=== PATIENT | female | born 1950 | race African-American/Black ===

== ENCOUNTER 2024-11-06 14:12 | Outpatient (CLI) | payer BC, SELFPAY ==
[2024-11-06 15:07] LABS: Alanine Aminotransferase 21 U/L (6-35); Aspartate Amino Transferase 34 U/L (14-36)
== END 2024-11-06 14:13 | disposition home or self-care (01) ==
PROVIDERS: Visit Provider Podiatrist Foot & Ankle Surgery
DX: B35.1 Tinea unguium (principal)
CPT/HCPCS: 36415; 84450; 84460

== ENCOUNTER 2025-02-12 14:04 | Outpatient (CLI) | payer BC, SELFPAY ==
--- OUTSIDE RECORDS SUMMARY | 2025-02-12 14:22 | XMS_ITS | Encounter Summary ---
Author Organization [facility] Healthcare Address [address] [place] [id number] Care Team Providers Care Digital Traffic Coordinator Name Role Phone Miguel Singh MD Primary Care Provide r Teresa Solano OD Unavailable [phone] Janiya Arana MD Primary Care Provider [phone] Reason for Visit * Reason Onset Date Comments Referral Review/Colon 11/10/2021 Encounter Details Date Type Department Care Team (Late st Contact Info) Description 11/10/2021 Telephone [facility] Specialty Services [address] [place] [address] Miscellaneous, Not In File Referral Review/Colon Social History Tobacco Use Types Packs/Day Years Used Date Smoking Tobacco: Never Smokeless Tobacco: Never Alcohol Use Standard Drinks/Week Comments No 0 (1 standard drink = 0.6 oz pur e alcohol) AUDIT-C Answer Date Recorded Q1: How often do you have a drink containing alc ohol? Never 12/31/2020 Average Number of Drinks Not on file 021 Frequency of Binge Drinking Not on file 12/14 Hunger Vital Sign Answer Date Recorded Within the past 12 months, y ou worried that your food would run out before you got the money to buy more. Never true 01/01/20 21 Within the past 12 months, t he food you bought just didn't last and you didn't have money to get more. Never true 12/31/2020 Comments No Sex and Gender Information Value Date Recorded Sex Assigned at Not on file Legal Sex Female 12:20 AM SWIMMER Gender Identity Not on file Sexual Orientation Not on file documented as of this encounter Plan of Treatment Scheduled Procedures Name Priority Associated Diagnoses Date/Ti me COLONOSCOPY Open Access Screening for malignant neoplasm of colon COLONOSCOPY Open Access Colon cancer screening COLONOSCOPY Screening for colon cancer COLONOSCOPY Screening for colon cancer COLONOSCOPY Screening for colon cancer documented as of this encounter Goals Goal Patient Goal Type Associated Problems Recent Progress Patient-Stated? Author CCM Hypertension Care Plan Chronic Care Management Worsening( 9:21 AM CDT) Kasey Laughlin, RN Note: Problem: Hypertension Goals: 1. Meet age adjusted blood pressure goals 2. Prevention of complications including eyes, kidneys blood vessels 3. Avoid low blood pressure/passing out 4. Improve medicine access and compliance Strategies: - DASH Diet education - Periodic phone call screening for development of vision changes, pain/fatigue associated with walking, near falls - Periodic phone calls to request blood pressure readings, frequency of missed medication doses, any side affects - Encourage regular MD visits and remind patient of importance of keeping upcoming appointments - Recommend healthy lifestyle strategies and compensatory methods as needed documented as of this encounter Visit Diagnoses Not on filedocumented in this encounter Care Teams Digital Traffic Coordinator Relationship Specialty Start Date End Date Miguel Singh MD PCP - General Hematology 11/06/19 10/29/22 Janiya Arana MD [id number] [address] PCP - General 10/30/22 Teresa Solano OD Primary Eye Care Provider Optometry 08/18/20 documented as of this encounter
--- OUTSIDE RECORDS SUMMARY | 2025-02-12 14:22 | XMS_ITS | Clinical Summary ---
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 Name Role Phone Teresa Solano OD Unavailable [phone] Janiya Arana MD Primary Care Provider [phone] Allergies Active Allergy Reactions Criticality Noted Date Comments Grass Pollen Headache Low 12/31/2020 Onion Other (See comments) Low 03/20/2019 Throat irritation Medications aspirin 81 mg tablet Take 1 tablet (81 mg total) by mouth daily 10/07/19 16 Active blood glucose diagnostic strip 1 each by in vitro route 3 (three) times a day 09/13/19 15 Active fluconazole (DIFLUCAN) 150 mg tablet 03/26/20 24 Active calcium citrate-vitamin D2 250 mg-2.5 mcg (100 unit) per tablet Take 1 tablet by mouth daily Active biotin 1 mg capsule Take by mouth Active empagliflozin (JARDIANCE) 10 mg tabletIndication s:type 2 diabetes mellitus Take 1 tablet (10 mg total) by mouth daily 360 tablet 04/10/20 24 025 Active lisinopriL (PRINIVIL,ZESTRI L) 40 mg tabletIndication s:Primary hypertension Take 1 tablet (40 mg total) by mouth daily 90 tablet 3 04/10/20 24 025 Active metFORMIN XR (GLUCOPHAGE XR) 500 mg 24 hr tablet Take 2 tablets (1,000 mg total) by mouth 2 (two) times a day with meals 360 tablet 3 06/06/19 25 026 Active atorvastatin (LIPITOR) 40 mg tablet Take 1 tablet (40 mg total) by mouth daily 90 tablet 4 08/01/19 25 026 Active estrogens, conjugated, (PREMARIN) vaginal cream Apply 0.5 gram to vagina at night twice per week 42.5 g 6 08/18/19 25 025 Active hydrOXYzine (ATARAX) 25 mg tabletIndication s:Allergic rhinitis, unspecified seasonality, unspecified trigger Take 1 tablet (25 mg total) by mouth 2 (two) times a day as needed for itching 90 tablet 4 08/29/19 25 Active solifenacin (VESIcare) 5 mg tabletIndication s:History of urinary urgency Take 2 tablets (10 mg total) by mouth daily 180 tablet 3 08/29/19 25 026 Active amLODIPine (NORVASC) 10 mg tabletIndication s:Primary hypertension Take 1 tablet (10 mg total) by mouth daily 90 tablet 3 08/29/19 25 Active latanoprost (XALATAN) 0.005 % ophthalmic solution Administer 1 drop into both eyes nightly 7.5 mL 1 09/28/19 25 Active fluticasone propionate (FLONASE) 50 mcg/actuation nasal spray Administer 2 sprays into each nostril daily 3 each 10/10/19 25 026 Active ibuprofen (ADVIL,MOTRIN) 800 mg tabletIndication s:Chronic left shoulder pain Take 1 tablet (800 mg total) by mouth every 6 (six) hours as needed for pain 90 tablet 01/16/20 25 Active estradioL (VAGIFEM) 10 mcg tabletIndication s:Atrophic Vaginitis associated with Menopause Insert 1 tablet (10 mcg total) into the vagina 2 (two) times a week 1 PV qhsfor 14 nights to initiate the txmnt then 2 nights per wk after that 24 tablet 2 01/18/20 25 026 Active levocetirizine (XYZAL) 5 mg tabletIndication s:Allergic rhinitis, unspecified seasonality, unspecified trigger Take 1 tablet (5 mg total) by mouth daily 30 tablet 11 01/25/20 25 026 Active hyoscyamine (LEVSIN) 0.125 mg tablet TAKE 1 TABLET BY MOUTH EVERY 4 HOURS NEEDED FOR CRAMPS 360 tablet 02/09/20 25 Active ibuprofen (ADVIL,MOTRIN) 800 mg tablet Take 1 tablet (800 mg total) by mouth every 6 (six) hours as needed for pain 90 tablet 07/07/19 23 025 Discontinu ed(Reorder ) hyoscyamine (LEVSIN) 0.125 mg tabletIndication s:Urinary Incontinence Take 1 tablet (0.125 mg total) by mouth every 4 (four) hours as needed for cramping 90 tablet 11 08/01/19 25 025 Discontinu ed(Reorder ) levocetirizine (XYZAL) 5 mg tabletIndication s:Allergic rhinitis, unspecified seasonality, unspecified trigger Take 1 tablet (5 mg total) by mouth daily 30 tablet 11 01/16/20 25 025 Discontinu ed(Reorder ) sulfamethoxazole -trimethoprim (BACTRIM DS) 800-160 mg per tabletIndication s:Acute cystitis without hematuria Take 1 tablet by mouth 2 (two) times a day for 3 days 6 tablet 01/18/20 25 025 cephalexin (KEFLEX) 500 mg capsuleIndicatio ns:Acute cystitis without hematuria Take 1 capsule (500 mg total) by mouth 2 (two) times a day for 7 days 14 capsule 01/23/20 25 025 Active Problems Problem Noted Date Diagnosed Date Screening for malignant neoplasm of colon 2024 Assessment & Plan (01/15/2025 9:46 PM CDT): Order placed in 07/2024 visit. Provided number today for colonoscopy appointment scheduling. Other female genital prolapse 10/26/2023 Assessment & Plan (10/26/2023 1:51 PM CDT): Patient with clinically evident pelvic organ prolapse, presenting with symptoms of urinary frequency and dysuria, as well as vaginal itching. Exam shows pink bulge at the introitus that extends further with Valsalva. Speculum exam deferred, but appears to be anterior. Patient has a hysterectomy, strong suspicion that this is a cystocele. --Referred to urogynecology --Will also order UA with reflex to culture to ensure no concurrent UTI Colon cancer screening 07/25/2023 Other hemorrhoids 04/15/2023 Overview (04/15/2023): Recently had a painful, itchy hemorrhoid that resolved with hemhorroidal treatments including Tucks witchhazel and preparation H. No symptoms today. Occasionally has loose stool but denies straining, constipation, or bloody stool. - symptomatic treatment for hemhorroids PRN - recommended miralax OTC PRN - recommended colonoscopy - pt deferred History of urinary urgency 01/05/2023 Overview (01/19/2024): Overall stable symptoms with sensation of urge to manzano to bathroom to urinate. Had seen Urology back in [id number]. Denies dysuria, hematuria, pelvic pain or lesions. - continue vesicare 5 mg BID - Continue pelvic floor exercises - Continue urinary lifestyle modifications. - Consider referral to Urogyn if no improvement. Assessment & Plan (07/25/2023 5:35 PM CDT): History of urinary urgency and urgency incontinence. Well-controlled on vesicare. - continue vesicare 10mg daily - continue pelvic floor exercises, urinary lifestyle modifications. - referral to urogyn if with worsening symptoms Assessment & Plan (01/05/2023 10:15 AM CDT): History of urinary urgency and urgency incontinence. Well-controlled and asymptomatic on vesicare. Patient follows with urology. - continue vesicare - continue pelvic floor exercises - follow up with urology as scheduled. Allergic rhinitis 07/07/2022 Overview (01/19/2024): She has post nasal drip that is present all the time, but seems to be present more often than it used to and some days it is worse than others. She also gets sinus headaches for which she takes ibuprophen. She states the post nasal drip is so bothersome and uncomfortable to her that it prevents her from eating. She takes flonase and an over the counter sinus pill from the [employer] store that she does not know the name of. She has tried zyrtec and claritin in the past but they did not provide much relief. Others. She states she has visited ENT but they did not have any suggestions for her. - continue flonase - refer to allergy Assessment & Plan (01/15/2025 9:46 PM CDT): Reports sinus pressure with associated ear fullness, headaches (forehead) and significant post-nasal drip that upsets her stomach and makes her lose appetite. Triggered by allergens (grass). 2-3x/week. Sx relief with tylenol and flonase. Has tried Zyrtec, Love, and Claritin in the past with minimal relief. Saw allergy&immunology in 03/2024 where skin testing showed mild sensitization to tree, oak, cockroach, and mites. Discussed with her that we could start her on another antihistamine called Xyzal to see if there is any improvement in her sx. During seasons such as summer where grass is unavoidable, recommended taking Xyzal daily. Pt was amenable to trialing this. Recommended continuation of sx relief with flonase as needed. - Start Xyzal 5mg daily Neuropathy 02/03/2022 Chronic left shoulder pain 02/03/2022 Assessment & Plan (01/15/2025 9:46 PM CDT): Refilled Ibuprofen. Counseled pt on recommended daily dose and to avoid exceeding this. Pt reports she only use this on occasion when her shoulder pain comes on, which is not daily. Thyroid nodule 06/09/2021 Overview (06/09/2021): Enlarged thyroid with dominant 3.5 cm left thyroid nodule found incidentally on CT CAP. Patient has history of tachycardia but has normal rate today and is asymptomatic. Nodule benign on FNA Mar 2020. Weight loss 12/31/2020 Overview (12/31/2020): Decreased appetite with some weight loss. Avoids foods that she does not enjoy. Lost ~10 pounds in past few months. Has previously had weight loss with neg work up including CT Abd in 2019. -RD consult -Appropriate cancer screening -Discontinuing citalopram 20 mg, replacing with mirtazapine -BMP -TSH -basic tumor markers - , CA19-9, AFP Assessment & Plan (01/05/2023 10:05 AM CDT): With history of decreased appetite and weight loss. Neg workup with CTAP, tumor markers, BMP, TSH. Appetite and intake is improved with Mirtazipine and she is has seen RD. - Continue Mirtazipine - Continue to ensure adequate intake for 2-3 meals a day with assistance from yard worker. Depressed mood 12/31/2020 Overview (12/31/2020): -Discontinuing citalopram for mirtazapine 7.5mg nightly in setting of controlled mood and decreased appetite Assessment & Plan (01/05/2023 10:15 AM CDT): Well-controlled, chronic issue managed with Mirtazipine 7.5mg nightly in the setting of history of depressed mood and decreased appetite. Low-tension glaucoma of both eyes, mild stage Overview (07/02/2021): Thinner CCTs Assessment & Plan (01/03/2025 2:34 PM CDT): Here for follow up with HVF 10-2 VA stable IOP at goal on latan QHS HVF 10-2 stable superior arcuates CPM RTC 6 months with OCT RNFL OU Plan to alternate 10-2 and 24-2 annually Assessment & Plan (07/05/2024 1:30 PM HAND SLITTER): OCT RNFL today with stable inferior thinning OU 11 both eyes (OU) on latan. Easier to remember to take in AM. At goal CPM Alternate 10-2 and 24-2 annually RTC 6 months for 1 year HVF10-2 OU and DFEx OU Assessment & Plan (12/29/2023 1:42 PM CDT): Here for intraocular pressure (IOP) check 11 both eyes (OU) on latan At goal CPM Alternate 10-2 and 24-2 annually RTC 6 months RNFL OU, 1 year HVF10-2 OU Assessment & Plan (06/30/2023 2:07 PM HAND SLITTER): Here for intraocular pressure (IOP) check 11 both eyes (OU) on latan At goal CPM Alternate 10-2 and 24-2 q6m RTC 6 months [place] visual field (HVF) 24-2 and RNFL OU Assessment & Plan (02/03/2023 12:04 PM CDT): LTG OU Here for 10-2: baseline right eye (OD) ST defect; left eye (OS) superior arcuate correlating with RNFL and 24-2 OCT Nerve is stable over two years today Plan to continue latan Return 4 mos for IOP check. If stable can consider extending Assessment & Plan (10/01/2022 2:52 PM CDT): LTG OU Here for 24-2: stable relative to 12/2021 since resuming latan OCT Nerve is stable over two years today Plan to continue latan Return 4 mos for IOP check and baseline 10-2 OU Assessment & Plan (07/08/2022 4:04 PM HAND SLITTER): LTG OU Last HVF 12/2021 Last OCT nerve 06/2021 Last visit added back latanoprost qhs OS for evidence of progression on HVF OS, had previously had some fluctuations in IOP TODAY: -IOP stable 11 OU Likely at goal today if consistent low teens Plan: - Continue latanoprost qHS OU - follow 2-3 months for IOP check, HVF 24-2 OU and DFEx/OCT nerve OU, sooner for concerns - Will need baseline HVF 10-2 in future, can alternate with 24-2 Assessment & Plan (12/31/2021 2:26 PM CDT): LTG OU - IOP today 11 OU s/p SLT - IOP at goal but HVF with progression OS - OD fluctuating from 2020, but OS with clear progression - add back latanoprost qHS OU - follow 2-3 months for IOP check, sooner for concerns Assessment & Plan (07/02/2021 1:16 PM HAND SLITTER): LTG both eyes s/p SLT OU Off all drops and IOP remains low teens RNFL stable today At this time with current IOP at testing, at goal Needs close monitoring giving proximity to fixation Follow 4-6 months with HVF 24-2C (do the C protocol) w/GPA Assessment & Plan (02/24/2021 3:54 PM CDT): LTG both eyes s/p SLT OU Off all drops and IOP remains low teens HVF today with stable SAS OD, paracentral defects OS OCT with inferior thinning OU At this time with current IOP at testing, at goal Needs close monitoring giving proximity to fixation Follow 6 months with DFE/OCT RNFL Assessment & Plan (01/16/2021 2:53 PM CDT): Here for SLT OU Discussed R/B/A Consent obtained, to be scanned in See procedure notes under Ophth tab Continue latanoprost qhs OU Start PF QID OU for 5 days then stop (provided). Discussed return precautions. [facility] 5-6 weeks for IOP check and HVF 24-2 OU Assessment & Plan (01/01/2021 1:18 PM CDT): Here for LTG eval. Previously seen by optom and neuro-ophth for eval of optic neuropathy without other determined etiology Normal labs: B12, B1, RPR, folate, MMA, copper MRI brain ruled out a compressive lesion, no findings concerning for demyelinating disorder TMax per our records: No hx trauma FHx: no known Gonio Gr IV, 1+ pigment, iris processes OU CCT slightly thin OU (520s OU) Current gtt: latanoprost qhs OU- frequently misses Intolerances: Simbrinza- blurriness and difficulty with TID dosing Other Hx: No hx Migraines, does have HTN- takes meds in AM HVF 24-2: OD: dense central defect (-31 db), superior bjerrum scotoma/SA, OS: ceco central defect, superior nasal step OCT RNFL 84 microns OU with inferior thinning OU Goal ~low-teens Plan: Continue latanoprost qhs OU RTC next available Lyerla SATHYA for SLT OU RTC 6 weeks post SLT Glaucoma clinic for HVF 24-2 Assessment & Plan (11/04/2020 11:07 AM CDT): Recommend switching to latanoprost nightly OU. Okay to stop Simbrinza, patient has difficulty with t.i.d. dosing. Recent evaluation in Neuro-Ophthalmology revealed no neurologic causes of vision loss including nutritional optic neuropathy or brain lesion. Referred to glaucoma clinic for evaluation for normal tension glaucoma. Assessment & Plan (06/17/2020 2:58 PM HAND SLITTER): Vs NTG right eye (OD). Sectorial pallor left eye (OS) more suggestive for non glaucomatous etiology. No FHx. Start hypotensive drop to increase optic nerve (ON) perfusion. Refer to Neuro-Op for eval for optic neuropathy (toxic/metabolic). BP Readings from Last 5 Encounters: 04/27/20 113/60 02/27/20 121/72 01/01/20 125/67 03/20/19 133/75 10/02/18 134/65 RTC for gonio/pach Russ after Neuro eval Age-related cataract of both eyes 06/27/2019 Assessment & Plan (07/05/2024 1:26 PM HAND SLITTER): NVS, monitor, migs candidate Assessment & Plan (12/29/2023 1:33 PM CDT): NVS, monitor, migs candidate Assessment & Plan (06/30/2023 2:07 PM HAND SLITTER): NVS, monitor, migs candidate Assessment & Plan (01/01/2021 1:21 PM CDT): Not yet VS. Could consider phaco/migs in future Assessment & Plan (06/17/2020 2:55 PM HAND SLITTER): Defer cataract surgery until signs and symptoms indicate. Pt was educated on the diagnosis. Recommend daily UV protection. Assessment & Plan (06/27/2019 9:42 AM HAND SLITTER): Defer cataract surgery until signs and symptoms indicate. Pt was educated on the diagnosis. Recommend daily UV protection. Bilateral retinal lattice degeneration 0 Assessment & Plan (06/17/2020 2:55 PM HAND SLITTER): Patient was educated on the signs/sx retinal detachment, including flashes, floaters, and/or curtain over the vision. Recommend patient RTC immediately with the onset of any of these symptoms. Assessment & Plan (06/27/2019 9:43 AM HAND SLITTER): Pt ed. Signs/sx retinal detachment (RD) reviewed. Optic nerve cupping of both eyes 06/27/2019 Assessment & Plan (06/27/2019 9:43 AM HAND SLITTER): RTC for Glaucoma work-up: [place] visual field (HVF), OCT, pach, gonio. No FHx Glaucoma. Health NRR both eyes (OU). Normal IOPs. Hypertensive retinopathy of both eyes, grade 1 0 06/27/2019 Assessment & Plan (06/27/2019 9:44 AM HAND SLITTER): Pt ed. Stressed strict BP control/med compliance. Healthcare maintenance 11/15/2017 Overview (01/19/2024): - A1c (for pts with BP >135/80): 7.2 12/2023 - Lipids (women >45 or high risk): repeat today - DEXA (women >65 or high risk): WNL 2020 - Vit D: Jun Cancer - Colonoscopy (age 45-75): 03/2022 - repeat in 6-12 months due to poor bowel prep (patient would like to differ till May 2024) - Mammogram (women age 50-74): birads 16 May 2020; scheduled for tomorrow - Pap (women 21-65): NA - Lung (50-80 with >20 pk-yr hx, and smoking in past 15yrs): NA Infectious Disease - HIV (age 15-65): neg in 2020 - HBV (if at high risk): NA - HCV (18+ yo): neg in 2018 - Gonorrhea/Chlamydia (women <24 or increased risk): NA - Syphilis (if increased risk): NA Immunizations - COVID-19: J&J, Pfizer, Pfizer bivalent - Influenza (annually): 3578-3065 - Td/Tdap (q10 years): 2020 - PPSV23 (age >65, immunocomp, DM, CKD, heart dz, lung dz, liver dz, EtOH, asplenia): 2018 - PCV13 (age >65, immunocomp, CKD, asplenia): 2017 - Shingles RZV (age >60): encouraged - HPV (women <26):NA - HAV (MSM or chronic liver disease): NA - HBV (DM, HIV, MSM, liver dz, CKD, healthcare workers): NA - Meningococcus (asplenia, college students): NA - HiB (asplenia, HSCT): NA Assessment & Plan (07/25/2023 5:28 PM CDT): - A1c (for pts with BP >135/80): 8.1% (01/05/23) > 7.3% 03/2023 - Lipids (women >45 or high risk): on atorvastatin 40mg QPM - DEXA (women >65 or high risk): WNL 2020 Cancer - Colonoscopy (age 45-75): 03/2022 - repeat in 6-12 months due to poor bowel prep Re-ordered today after patient discussion - Mammogram (women age 50-74): birads 2 on 09/2022 - Pap (women 21-65): NA - Lung (50-80 with >20 pk-yr hx, and smoking in past 15yrs): NA Infectious Disease - HIV (age 15-65): neg in 2020 - HBV (if at high risk): NA - HCV (18+ yo): neg in 2018 - Gonorrhea/Chlamydia (women <24 or increased risk): NA - Syphilis (if increased risk): NA Immunizations - COVID-19: J&J, Pfizer, Pfizer bivalent - Influenza (annually): 2960-9589 - Td/Tdap (q10 years): 2023 - PPSV23 (age >65, immunocomp, DM, CKD, heart dz, lung dz, liver dz, EtOH, asplenia): 2018 - PCV13 (age >65, immunocomp, CKD, asplenia): 2017 - Shingles RZV (age >60): encouraged - HPV (women <26):NA - HAV (MSM or chronic liver disease): NA - HBV (DM, HIV, MSM, liver dz, CKD, healthcare workers): NA - Meningococcus (asplenia, college students): NA - HiB (asplenia, HSCT): NA Assessment & Plan (01/05/2023 10:12 AM CDT): - A1c (for pts with BP >135/80): 8.1% (01/05/23) - Lipids (women >45 or high risk): reordered today on atorvastatin 40mg QPM - DEXA (women >65 or high risk): WNL 2020 Cancer - Colonoscopy (age 45-75): 03/2022 - repeat in 6-12 months due to poor bowel prep (deferred, reorder on RTC in 02/2023) - Mammogram (women age 50-74): birads 2 on 09/2022 - Pap (women 21-65): NA - Lung (50-80 with >20 pk-yr hx, and smoking in past 15yrs): NA Infectious Disease - HIV (age 15-65): neg in 2019 - HBV (if at high risk): NA - HCV (18+ yo): neg in 2018 - Gonorrhea/Chlamydia (women <24 or increased risk): NA - Syphilis (if increased risk): NA Immunizations - COVID-19: J&J, Pfizer, Pfizer bivalent - Influenza (annually): 9887-6568 - Td/Tdap (q10 years): 2020 - PPSV23 (age >65, immunocomp, DM, CKD, heart dz, lung dz, liver dz, EtOH, asplenia): 2018 - PCV13 (age >65, immunocomp, CKD, asplenia): 2017 - Shingles RZV (age >60): encouraged - HPV (women <26):NA - HAV (MSM or chronic liver disease): NA - HBV (DM, HIV, MSM, liver dz, CKD, healthcare workers): NA - Meningococcus (asplenia, college students): NA - HiB (asplenia, HSCT): NA Hyperlipidemia 07/13/2016 Overview (11/15/2017): On atorva 40 mg qd. ASCVD 7.5%. Assessment & Plan (07/31/2024 11:52 AM CDT): ASCVD risk is 24.8% with RF (HTN, DM). - continute lipitor 40mg, lipid panel UTD - continute lifestyle modifications involving diet and activity Assessment & Plan (07/25/2023 5:24 PM CDT): ASCVD risk is 24.8% with RF (HTN, DM). - continute lipitor 40mg, lipid panel UTD - continute lifestyle modifications involving diet and activity Assessment & Plan (01/05/2023 10:21 AM CDT): ASCVD risk is 8.1% with RF (HTN, DM). - continute lipitor 40mg - repeat lipid panel today - continute lifestyle modifications involving diet and activity Osteopenia 01/22/2015 Overview (11/15/2017): Dexa in 2008. Last vitamin D level 40 in 2015, currently on OTC supplementation. Complete tear of rotator cuff 02/11/2014 Overview (11/15/2017): Followed by ortho, managed with stretching exercises, prn ibuporfen. Diabetes mellitus 03/31/2011 Assessment & Plan (01/15/2025 9:46 PM CDT): Today's A1c is which is 6.6% from prior 6.5% (07/2024) . Current regimen: Metformin 1000mg bid, Jardiance 10mg daily. She reports taking BGs in evening (weekends will be AM and PM) and reports average fasting glucose of 120s, higher in the past few weeks. Reports 1-2 episodes of hypoglycemia (60s) with associated lightheadedness, resolved with drinking soda. Diabetic Maintenance: - Last eye exam: 01/03/2025 normal - Last foot exam: 10/2024 was normal, scheduled for 02/12/2025 - Last urine Alb/Cr ratio: ordered today - Goal BP <130/80: at goal - Goal A1c < 7%: at goal - Statin: Atorva 40 - LDL <70: 100 in 07/2024 Plan: - Continue current regimen - F/u urine Alb/cr Assessment & Plan (07/31/2024 11:52 AM CDT): - Current Regimen: Metformin 2g daily Jardiance 10mg daily - HbA1c: 7.1% on 07/2023 > 7.2% 01/2024 - BP: well-controlled - Microalbumin/Creatinine: UTD - ACEi/ARB: yes - ASCVD risk score: The 10-year ASCVD risk score (Charmaine RIGGINS, et al., 2019) is: 25.2% Values used to calculate the score: Age: 74 years Sex: Female Is Non- : Yes Diabetic: Yes Tobacco smoker: No Systolic Blood Pressure: 134 mmHg Is BP treated: Yes HDL Cholesterol: 39 mg/dL Total Cholesterol: 163 mg/dL - Statin: On Atorva 40mg daily - Foot/extremity exam (06/2023) - Retinopathy exam (06/2023) Brief plan: - continue dietary and activity modifications, doing well, follow up in 6 months for repeat A1c Assessment & Plan (07/05/2024 1:30 PM HAND SLITTER): Recommend DFEx at next visit Assessment & Plan (07/25/2023 5:31 PM CDT): - Current Regimen: Metformin 2g daily Jardiance 10mg daily - HbA1c: 7.1% on 07/2023 - BP: well-controlled - Microalbumin/Creatinine: UTD - ACEi/ARB: yes - ASCVD risk score: The 10-year ASCVD risk score (Charmaine RIGGINS, et al., 2019) is: 24.8% Values used to calculate the score: Age: 73 years Sex: Female Is Non- : Yes Diabetic: Yes Tobacco smoker: No Systolic Blood Pressure: 133 mmHg Is BP treated: Yes HDL Cholesterol: 39 mg/dL Total Cholesterol: 167 mg/dL - Foot/extremity exam (06/2023) - Retinopathy exam (06/2023) Brief plan: - continue dietary and activity modifications Assessment & Plan (01/05/2023 10:25 AM CDT): - Current Regimen: Metformin 2g daily + Jardiance 10mg daily started 01/05/23 - HbA1c: 8.1% (01/05/23) - BP: well-controlled - Microalbumin/Creatinine: ordered today - ACEi/ARB: yes - ASCVD risk score: The ASCVD Risk score (Charmaine RIGGINS, et al., 2019) failed to calculate for the following reasons: Cannot find a previous HDL lab Cannot find a previous total cholesterol lab - Foot/extremity exam (06/2022) - Retinopathy exam (09/2022) Brief plan: - Started Jardiance today, continue to monitor BG at home - continue to ensure adequate intake during the day, avoid skipping meals - hypoglycemia precautions advised - continue dietary and activity modifications Rotator cuff disorder 03/15/2011 Overview (04/15/2023): R shoulder pain s/p rotator cuff repair. Also has some L rotator cuff pain. Able to perform ADL and IADLs. Mild. - Continue OTC ibuprofen and OTC lidocaine patches - Follow up with PM&R who offered nerve block/RFA as needed if symptoms worsen Assessment & Plan (07/25/2023 5:26 PM CDT): Mild bilateral rotator cuff pain s/p repair managed well with OTC ibuprofen and lidocaine patches. Continues to perform ADLs and IADLs without issues. Established with PM&R who offered nerve block/RFA, but at this time patients symptoms are adequately managed with medication and she would like to continue to avoid interventions. - continue OTC ibuprofen and tylenol - return precautions to PM&R advised including worsening pain not managed adequately with OTC ibuprofen and tylenol and inability to complete IADLs and ADLs Assessment & Plan (01/05/2023 10:08 AM CDT): Mild bilateral rotator cuff pain managed well with OTC ibuprofen and lidocaine patches. Continues to perform ADLs and IADLs without issues. Established with PM&R who offered nerve block/RFA, but at this time patients symptoms are adequately managed with medication and she would like to avoid interventions. - continue OTC ibuprofen and tylenol - return precautions to PM&R advised including worsening pain not managed adequately with OTC ibuprofen and tylenol and inability to complete IADLs and ADLs Hypertension 10/29/2005 Overview (01/19/2024): BP today 129/72. On Lisinopril 40mg daily, Amlodipine 10mg daily - cont current regimen Assessment & Plan (07/31/2024 11:52 AM CDT): Current regimen: Lisinopril 40mg daily and Amlodipine 10mg daily . Well controlled in clinic and at home - cont current regimen - continue low sodium diet, exercise Assessment & Plan (07/25/2023 5:23 PM CDT): Current regimen: Lisinopril 40mg daily and Amlodipine 10mg daily . Taking Medications regularly. The home BP readings have been in the 130-140's. BP in clinic today was 133/60. Denies dizziness, headaches, visual changes, chest pain, SOB. She noted feeling off balance with standing up very quickly, at last visit advised to be cautious with positional changes. She notes improvements to symptoms since she was last seen - cont current regimen - continue to take time with positional changes - continue low sodium diet, exercise Assessment & Plan (01/05/2023 10:00 AM CDT): Chronic, well-controlled on Norvasc 10 and lisinopril 40. Continue current management - lisinopril 40 - amlodipine 10 mg daily - continue DASH diet, checking BP at home IBS (irritable bowel syndrome) 10/29/2005 Overview (01/19/2024): Controlled with hyoscyamine - reordered hyoscyamine Resolved Problems Problem Noted Date Diagnosed Date Resolved Date Severe malnutrition (CMS/HCC) 04/26/2020 06/09/2021 Fatigue 04/25/2020 06/09/2021 Assessment & Plan (04/27/2020 1:17 PM HAND SLITTER): Much improved. -Unclear etiology. She has had worsening generalized weakness since 04/20. It seemed severe on admission (04/24 HS), but was improved by 04/25 AM. TSH, ACS w/u, lactate, VBG (for hypercarbia), UDS, basic labs, infectious (besides covid) w/u unrevealing. She is not hypotensive. -Working diagnosis is 2/2 covid +/- atypical PNA +/- dehydration/poor PO intake. -Infectious w/u: (known covid +), UA, CXR, BCx -Azithromycin for possible atypical PNA on CXR -Holding off HCT as neuro exam is normal Sepsis 04/25/2020 06/09/2021 Assessment & Plan (04/25/2020 10:43 AM HAND SLITTER): Based on fever x1 (39.5), tachycardia (102), and borderline WBC (10-11). -BCx, UA, CXR -Azithromycin. Low threshold for broad spectrum ABx. Decreased appetite 04/25/2020 2 Assessment & Plan (04/25/2020 10:45 AM HAND SLITTER): Likely 2/2 generalized malaise. According to son, has barely eaten/drank over the past few days. Creatinine wnl Hypertension associated with diabetes 04/25/2020 04/15/2023 Assessment & Plan (04/25/2020 10:47 AM HAND SLITTER): -Observe off meds (has been normotensive) Depression 04/25/2020 06/09/2021 Assessment & Plan (04/25/2020 10:47 AM HAND SLITTER): Restart home citalopram COVID-19 virus infection 04/24/2020 Assessment & Plan (04/27/2020 1:17 PM HAND SLITTER): Tested covid + 04/24/20. She has no dyspnea, no cough. Her main symptoms is lethargy/generalized fatigue/weakness. -Observe; O2 if needed; telemetry -She also has a mild transaminitis which could be from covid -> observe -She also has a mild coagulopathy, which could be from covid vs poor nutrition - > vit K PO, observe -Diarrhea -> C diff is negative Herpes zoster 01/13/2017 06/09/2021 Major depression 11/28/2015 06/09/2021 Overview (11/15/2017): Controlled on citalopram 20 qd. Increased frequency of urination 12/18/2012 06/09/2021 Eczema 08/28/2012 06/09/2021 Nocturia 05/06/2009 11/15/2017 Arthralgia of ankle 10/29/2005 06/09/19 Encounters Date Type Department Care Team Description 01/31/2025 Telephone [facility] [address] [place] [address] 3rd Floor [address] [place] [address] Allie Arriola RN 01/23/2025 Telephone [facility] Primary Care Medicine Clinic [address] [place] [address] Health [address] [place] [phone] Marilin Carmona MD 01/23/2025 Documentation [facility] [address] [place] [address] Health [address] [place] [id number] Marilin Carmona MD 01/22/[address] [phone] Bria Rodriguez MD 01/21/2025 [facility] Primary Care Medicine Clinic [address] [place] [address] Health [address] [place] [address] Janiya Arana MD Follow-up 01/21/2025 Telephone [facility] Clinic [address] [place] [address] 3rd [address] [place] [address] Darron Robertson 01/17/[address] [phone] Bria Rodriguez MD 01/15/2025 2:30 PM CDT Office Visit [facility]etrics [facility] Gyne[facility] Clinic [address] [facility] 3rd [address] [place] [phone] Bria Rodriguez MD Increased urinary frequency (Primary Dx); Vaginal atrophy 01/15/2025 1:00 PM CDT Office Visit [facility] Medicine [facility] [address] [facility] [address] [place] [address] Marilin Carmona MD Type 2 diabetes mellitus without complication, without long-term current use of insulin (HCC) (Primary Dx); Allergic rhinitis, unspecified seasonality, unspecified trigger; Chronic left shoulder pain; Screening for malignant neoplasm of colon 01/03/2025 2:00 PM CDT Office Visit [facility] Medicine Ophthalmology [address] [place] [address] 1st [place] [address] Low-tension glaucoma of both eyes, mild stage (Primary Dx) from Last 3 Months Immunizations Immunization Administration Dates Next Due COVID-19 mRNA ([facility]) 0.3 m L (30 mcg) vaccine (12 years and up) 04/12/2023 Influenza, Quadrivalent, Hig h Dose, Preservative Free, Intrr 04/12/2023 Influenza, Trivalent, Preser vative Free, Intramuscular 03/16/2011,04/11/2007,03/08/2006 Influenza, Unspecified 02/27/2020 Lance (J&J) SARS-CoV-2 Vaccination 07/24/2020 Pneumococcal Conjugate PCV 13 11/04/2016 Pneumococcal Polysaccharide PPV23 03/07/2018 TD Preservative Free 02/10/2010 Td, adsorbed 01/01/2020 Tdap 07/25/2023 Surgical History Surgery Date Site/Laterality Comments [place] COLONOSCOPY FLX DX W/SEBASTIAN J SPEC WHEN PFRMD Complete Colonoscopy - (Added by TW Conv) [place] TOTAL ABDOMINAL HYSTERECT W/WO RMVL TUBE OVARY Hysterectomy - (Added by TW Conv) ROTATOR CUFF REPAIR Rotator Cuff Repair - (Added by TW Conv) Medical History Medical History Date Comments Pain in ankle Ankle joint pain - (Added by TW Conv) Encounter for screening mamm ogram for malignant neoplasm of breast Visit for screening mammo gram - (Added by TW Conv) Personal history of other di seases of the musculoskeletal system and connective tissue History of osteopenia - (Add ed by TW Conv) Personal history of other me ntal and behavioral disorders History of depression - (Add ed by TW Conv) Personal history of diseases of skin or subcutaneous tissue History of eczema - (Added b y TW Conv) Urge incontinence Urge incontine nce of urine - (Added by TW Conv) Irritable bowel syndrome wit hout diarrhea Irritable bowel syndrome - ( Added by TW Conv) Essential (primary) hypertension Hypertension - (Added by TW Conv) Murmur, cardiac Seasonal allergies Diabetes HTN (hypertension) Recurrent sinus infections Chronic allergic conjunctivitis 07/21/2010 Family History Medical History Relation Name Comments Glaucoma Neg Hx Macular degeneration Neg Hx Social History Tobacco Use Types Packs/Day Years Used Date Smoking Tobacco: Never Smokeless Tobacco: Never Alcohol Use Standard Drinks/Week Comments No 0 (1 standard drink = 0.6 oz pur e alcohol) AUDIT-C Answer Date Recorded Q1: How often do you have a drink containing alcohol? Never 07/25/2023 Q2: How many drinks containi ng alcohol do you have on a typical day when you are drinking? Patient does not drink Q3: How often do you have si x or more drinks on one occasion? Never 07/25/2023 PHQ-2 Answer Date Recorded PHQ-2 Total Score (If total score is 3 or more points, staff should administer the PHQ-9) 0 07/31/2024 Hunger Vital Sign Answer Date Recorded Within the past 12 months, y ou worried that your food would run out before you got the money to buy more. Never true 01/16/20 25 Within the past 12 months, t he food you bought just didn't last and you didn't have money to get more. Never true 01/15/2025 Comments No Sex and Gender Information Value Date Recorded Sex Assigned at Not on file Legal Sex Female 12:20 AM HAND SLITTER Gender Identity Not on file Sexual Orientation Not on file Obstetrics History Last Filed Vital Signs Vital Sign Reading Time Taken Comments Blood Pressure 136/68 01/15/2025 2:40 PM CDT Pulse 81 01/15/2025 2:40 PM CDT Temperature 36.7 C (98.1 F) 01/15/2025 1:24 PM CDT Respiratory Rate 18 01/15/2025 1:24 PM CDT Oxygen Saturation 97% 01/15/2025 2:40 PM CDT Inhaled Oxygen Concentration - - Weight 68 kg (149 lb 14.4 oz) 01/15/2025 2:40 PM CDT Height 175.3 cm (5' 9) 01/15/2025 2:40 PM CDT Body Mass Index 22.14 01/15/2025 2:40 PM CDT Plan of Treatment Scheduled Procedures Name Priority Associated Diagnoses Date/Ti me COLONOSCOPY Open Access Screening for malignant neoplasm of colon COLONOSCOPY Open Access Colon cancer screening COLONOSCOPY Screening for colon cancer COLONOSCOPY Screening for colon cancer COLONOSCOPY Screening for colon cancer Health Maintenance Due Date Last Done Comments Zoster Vaccine (1 of 2) 2001 Well Visit 65+ 2016 Osteoporosis Screening-Bone Density Scan 01/27/2023 01/27/2021 Foot Exam 06/27/2024 06/27/2023 Covid-19 Vaccine (2024-06 6 season) 2025 04/12/2023, 02/09/2022, 05/04/2021, Additional history exists Influenza Vaccine (#1) 2025 , 02/09/2022, 02/27/2020, Additional history exists Albumin Creatinine Ratio, Urine 01/16/2025 01/17/2024, 04/12/2023, 02/27/2020 Hemoglobin A1C 07/15/2025 01/15/2025, 07/14, 01/17/2024, Additional history exists Depression Screening 07/31/2025 07/31/2024, 01/06/20 23 Fall Risk Assessment 07/31/2025 07/31/2024, 04/13/20 22 Lipid Panel 07/31/2025 07/31/2024, 08/2 07/2022, 01/01/2020, Additional history exists eGFR 07/31/2025 07/31/2024, 0907/2023, 01/05/2023, Additional history exists Breast Cancer Screening-Mammogram 09/04/2025 09/04/2024, 09/21/2022, 06/02/2020, Additional history exists Dilated Eye Exam 01/03/2026 01/03/2025, , 10/01/2022, Additional history exists Colon Cancer Screening-Colonoscopy 04/13/2032 04/13/2022, 03/20/2018, 04/20/2013 DTaP/Tdap/Td Vaccine (2 - Td or Tdap) 07/24/2033 07/25/2023, 01/01/2020, 02/10/2010 Hepatitis C Screening Completed 03/07/2018 Pneumococcal vaccine 65+ Completed 03/07/2018, 10/15 Colon Cancer Screening-CT Colonography Discontinued 04/13/2022, 03/20/2018, 04/20/2013 Colon Cancer Screening-DNA Stool Discontinued 04/13/2022, 03/20/2018, 04/20/2013 Colon Cancer Screening-FIT Discontinued 04/13, 03/20/2018, 04/20/2013 Colon Cancer Screening-Sigmoidoscopy Discontinued 04/13/2022, 03/20/2018, 04/20/2013 Hepatitis B Screening Completed 07/31/2024 Goals Goal Patient Goal Type Associated Problems [...] lifestyle strategies and compensatory methods as needed Procedures Procedure Name Priority Date/Time Associated Diagnosis Comments URINALYSIS, MICROSCOPIC ONLY Routine 01/15/2025 4:32 PM CDT Increased urinary frequency URINALYSIS AND REFLEX TO MICROSCOPIC AND CULTURE Routine 01/15/2025 4:32 PM CDT Increased urinary frequency URINE CULTURE Routine 01/15/2025 4:32 PM CDT POCT URINALYSIS (CLINITEK) Routine 01/15/2025 3:51 PM CDT POCT HEMOGLOBIN A1C Routine 01/15/2025 1:33 PM CDT Type 2 diabetes mellitus without complication, without long-term current use of insulin (HCC) HASTINGS VISUAL FIELD - OU - BOTH EYES Routine 01/03/2025 2:35 PM CDT Low-tension glaucoma of both eyes, mild stage SCREENING MAMMOGRAM BILATERAL W ALEN Schedule Routine, Read Routine (OP Routine) 09/04/2024 11:45 AM CDT Screening mammogram, encounter for EGFR Routine 07/31/2024 12:07 PM CDT Type 2 diabetes mellitus without complication, without long-term current use of insulin (HCC) LIPID PANEL Routine 07/31/2024 12:07 PM CDT Type 2 diabetes mellitus without complication, without long-term current use of insulin (HCC) Hyperlipidemia, unspecified hyperlipidemia type ALBUMIN CREATININE RATIO, URINE Routine 01/17/2024 5:02 PM CDT Controlled type 2 diabetes mellitus without complication, without long-term current use of insulin (HCC) COLONOSCOPY 04/13/2022 8:41 AM HAND SLITTER DEXA AXIAL SKELETON BONE DENSITY 1 OR MORE SITES Schedule Routine, Read Routine (OP Routine) 01/27/2021 9:47 AM CDT Screening for osteoporosis HEPATITIS C ANTIBODY Routine 03/07/2018 2:47 PM CDT Healthcare maintenance from Last 3 Months or Most Recently Relevant to Health Maintenance Results * (ABNORMAL) Urinalysis reflex to microscopic and culture Urine, clean voided (01/15/2025 4:32 PM CDT) Color, ur Yellow Yellow Clarity, ur Cloudy(A) Clear [facility] Specific gravity, ur 1.029 1.003 - 1.030 [facility] pH, urine 5.5 [facility] Comment: Interpretive Data U rine pH is affected by diet, medications, systemic acid-base disturbances, and renal tubular function. pH may affect urinary stone formation. For example, urine pH below 6.0 may help reduce the tendency for calcium phosphate stones and pH greater than 6.0 may reduce the tendency for uric acid stone formation. Source: [facility] Current Interpretive Data was last revised on 2017 Protein, ur ql Negative Negative [facility] Glucose, ur ql 4+(A) Negative [facility] Ketones, ur Negative Negative [facility] Bilirubin, ur Negative Negative [facility] Blood, ur Negative Negative [facility] Urobilinogen, ur <2.0 <2.0 mg/dL [facility] Nitrite, ur Positive(A) Negative [facility] Leukocyte esterase, ur Negative Negative [facility] UA reflex comment Reflex to microscopic UA will be performed. [facility] Urine, clean voided 01/15/2025 4:32 PM CDT 01/15/2025 4:32 PM CDT Bria Rodriguez MD LAB MICROBIOLOGY - [facility] ORDERABLES Final Result [facility] Department [place] [address] * (ABNORMAL) Urinalysis, microscopic only (01/15/2025 4:32 PM CDT) WBC, ur 0-5 0 - 5 /HPF RBC, ur 0-2 0 - 2 /HPF [facility] Epithelial cells, squamous, ur 1-5 0 - 5 /HPF [facility] Bacteria, ur 4+(A) [facility] Mucous, ur Present(A) [facility] Culture Reflex Comment Reflex conditions for urine culture (WBC >10) not met. [facility] Urine, clean voided 01/15/2025 4:32 PM CDT 01/15/2025 4:32 PM CDT us Bria Rodriguez MD LAB URINE ORDERABLES Fi nal Result Performing Organization Address City/[facility]/ZIP Co de Phone Number [facility] Department [place] [address] * (ABNORMAL) Urine culture Urine (01/15/2025 4:32 PM CDT) Report Final Report: Greater than or equal to 100,000 colonies/mL of Klebsiella pneumoniae Plus growth of clinically insignificant bacterial isai. (.) Organism KLEBSIELLA PNEUMONIAE [facility] Organism PLUS GROWTH OF CLINICALLY INSIGNIFICANT ISAI. [facility] Urine 01/15/2025 4:32 PM CDT 01/17/2025 3:33 PM CDT Narrative [facility] - 01/19/2025 4:19 PM CDT Testing performed by [facility] Microbiology Laboratory ([phone]) Organism Antibiotic Method Susceptibility Klebsiella pneumoniae Ampicillin INTERPRETATION Resistant Klebsiella pneumoniae Cefazolin INTERPRETATION Susceptible Klebsiella pneumoniae Nitrofurantoin INTERPRETATION Resistant Klebsiella pneumoniae Gentamicin INTERPRETATION Susceptible Klebsiella pneumoniae Trimethoprim with Sulfamethoxazole INTERPRETATION Resistant Klebsiella pneumoniae Meropenem INTERPRETATION Susceptible Klebsiella pneumoniae Cefepime INTERPRETATION Susceptible Klebsiella pneumoniae Ciprofloxacin INTERPRETATION Susceptible Klebsiella pneumoniae Ceftazidime INTERPRETATION Susceptible Klebsiella pneumoniae Ceftriaxone INTERPRETATION Susceptible Klebsiella pneumoniae Piperacillin/Tazobactam INTERPRE TATION Susceptible Klebsiella pneumoniae Cephalexin INTERPRETATION Susceptible Klebsiella pneumoniae Cefuroxime-axetil INTERPRETATION Susceptible Klebsiella pneumoniae Cefdinir INTERPRETATION Susceptible us Bria Rodriguez MD LAB MICROBIOLOGY - [facility] ORDERABLES Final Result Performing Organization Address [facility] Co de Phone Number [facility] Department [place] [address] * (ABNORMAL) POCT urinalysis (Clinitek) (01/15/2025 3:51 PM CDT) Color, ur, POC Dark yellow Clarity, UA, POC Cloudy(A) Clear [facility] Glucose, ur, POC 3+(A) Negative [facility] Bilirubin, ur, POC Negative Negative [facility] Ketones, ur, POC Negative Negative [facility] Specific gravity, ur, POC 1.020 1.010 - 1.025 [facility] Blood, ur, POC Trace(A) Negative [facility] pH, ur, POC 5.0 [facility] Comment: Interpretive Data Urine pH is affected by diet, medications, systemic acid-base disturbances, and renal tubular function. pH may affect urinary stone formation. For example, urine pH below 6.0 may help reduce the tendency for calcium phosphate stones and pH greater than 6.0 may reduce the tendency for uric acid stone formation. Source: [facility] [employer]. Last Revised Date: 05-26-2017 Protein, ur, POC Negative Negative [facility] Urobilinogen, ur, POC 0.2 mg/dL mg/dL [facility] Nitrites, ur, POC Positive(A) Negative [facility] Leukocyte esterase, ur, POC Negative Negative [facility] Urine 01/15/2025 3:51 PM CDT 01/15/2025 3:51 PM CDT us Bria Rodriguez MD LAB POCT ORDERABLES - D CHANGICE Final Result Performing Organization Address City/[facility] Co de Phone Number [facility] Department [place] [address] * (ABNORMAL) POCT hemoglobin A1c (01/15/2025 1:33 PM CDT) Hgb A1C, POC 6.6(H) 4.0 - 5.6 % Est Average Gluc POC 143 mg/dL [facility] Comment: The ADA recommends reporting an estimated Average Glucose (eAG) with all Hemoglobin A1c results using the equation derived from a study of 507 normal and diabetic adults. Minority populations were underrepresented and children were not included. (Diabetes Care 31:3109-5327, 2008). The eAG is not equivalent to a fasting glucose. Blood 01/15/2025 1:33 PM CDT 01/15/2025 1:33 PM CDT us Marilin Carmona MD POINT OF CARE TEST ORDERA BLES Final Result [facility] Department [place] [address] * [place] Visual Field - OU - Both Eyes (01/03/2025 2:35 PM CDT) Pattern Deviation OS 11.09 db CONTINUUM Pattern Deviation OD 9.37 db CONTINUUM Mean Deviation OS -6.29 db CONTINUUM Mean Deviation OD -4.90 db CONTINUUM Anatomical Region Laterality Modality Head Visual Field Narrative 01/03/2025 2:35 PM CDT Right Eye Fixation was good. Cooperation was good. Reliability was good. Foveal threshold was normal. Mean Deviation was -4.90 db. Pattern Deviation was 9.37 db. Left Eye Fixation was good. Cooperation was good. Reliability was good. Foveal threshold was normal. Mean Deviation was -6.29 db. Pattern Deviation was 11.09 db. Notes 10-2 OU Stable superior arcuates Roxane Gupta MD [facility] VISUAL FIEL D Final Result * Screening Mammogram Bilateral W Alen (09/04/2024 11:45 AM CDT) Anatomical Region Laterality Modality Breast Bilateral Mammography Narrative 09/05/2024 9:18 AM CDT Mammogram Technique: Bilateral Digital Breast Tomosynthesis, Bilateral C-view 2D Screening mammogram. Views obtained: bilateral craniocaudal and bilateral mediolateral oblique. Computer Aided Detection was performed. Mammogram Findings: The present examination has been compared to prior imaging studies performed at [facility] on 04/03/2019, 06/02/2020 and 09/21/2022. The breasts are almost entirely fatty. There is no suspicious abnormality in either breast. Impression: There is no mammographic evidence of malignancy. Annual screening mammography is recommended. OVERALL FINAL ASSESSMENT: BI-RADS CATEGORY 1: Negative. Procedure Note Rubia Brown MD - 09/05/2024 Mammogram Technique: Bilateral Digital Breast Tomosynthesis, Bilateral C-view 2D Screening mammogram. Views obtained: bilateral craniocaudal and bilateral mediolateral oblique. Computer Aided Detection was performed. Mammogram Findings: The present examination has been compared to prior imaging studies performed at [facility] on 04/03/2019, 06/02/2020 and 09/21/2022. The breasts are almost entirely fatty. There is no suspicious abnormality in either breast. Impression: There is no mammographic evidence of malignancy. Annual screening mammography is recommended. OVERALL FINAL ASSESSMENT: BI-RADS CATEGORY 1: Negative. Janiya Arana MD IMG MAMMO PROCEDURES Final Re sult * eGFR (07/31/2024 12:07 PM CDT) eGFR 75 >=60 mL/min/1. 73 m2 Comment: Interpretive Data Reference Interval Normal >/= 90 mL/min/1.73m2 Mildly decreased* 60 - 89 mL/min/1.73m2 Mildly to moderately decreased 45 - 59 mL/min/1.73m2 Moderately to severely decreased 30 - 44 mL/min/1.73m2 Severely decreased 15 - 29 mL/min/1.73m2 Kidney Failure < 15 mL/min/1.73m2 *Relative to young adult level Estimated glomerular filtration rate is determined by the 2020 CKD-EPI equation recommended by the National Kidney Foundation (A Unifying Approach to GFR Estimation: Recommendations of the NKF-ASK Task Force on Reassessing the Inclusion of Race in Diagnosing Kidney Disease, JASN 2020). The CKD-EPI equation should not be used for patients with unstable renal function and has not been validated in children and those over 70. Current interpretive data was last reviewed 2021. Blood 07/31/2024 12:0 7 PM CDT 07/31/2024 1:46 PM CDT Janiya Arana MD LAB BLOOD ORDERABLES Final Re sult [facility] Department [place] [address] * Lipid panel (07/31/2024 12:07 PM CDT) Cholesterol 166 30 - 199 mg/dL Comment: Interpretive Data Ages < or = 19 years Acceptable: <170 mg/dL Borderline high: 170-199 mg/dL High: >or= 200 mg/dL Ages > or = 20 years Desirable: <200 mg/dL Borderline high: 200-239 mg/dL High: >or= 240 mg/dL Literature References: 1. Expert Panel on Integrated Guidelines for Cardiovascular Health and Risk Reduction in Children and Adolescents. Pediatrics 2011;128:S213 2. NCEP Expert Panel. Circulation 2004;110:227 Current Interpretive Data was last revised on 2018. Triglycerides 122 <=149 mg/dL [facility] Comment: Interpretive Data Ages < or = 9 years Acceptable: <75 mg/dL Borderline high: 75-99 mg/dL High: >or= 100 mg/dL Ages 10 to 20 years Acceptable: <90 mg/dL Borderline high: 90-129 mg/dL High: >or= 130 mg/dL Ages > or = 20 years Desirable: <150 mg/dL Borderline high: 150-199 mg/dL High: 200-499 mg/dL Very high: >or= 499 mg/dL Literature References: 1. Expert Panel on Integrated Guidelines for Cardiovascular Health and Risk Reduction in Children and Adolescents. Pediatrics 2011;128:S213 2. NCEP Expert Panel. Circulation 2004;110:227 Current Interpretive Data was last revised on 2018. HDL 44 >=40 mg/dL [facility] Comment: Interpretive Data Ages < or = 19 years Acceptable: >45 mg/dL Borderline low: 40-45 mg/dL Low: <40 mg/dL Ages > or = 20 years Desirable: >or= 60 mg/dL Low: <40 mg/dL Literature References: 1. Expert Panel on Integrated Guidelines for Cardiovascular Health and Risk Reduction in Children and Adolescents. Pediatrics 2011;128:S213 2. NCEP Expert Panel. Circulation 2004;110:227 Current Interpretive Data was last revised on 2018. LDL, calculated 100 <=129 mg/dL [facility] Comment: Interpretive Data Ages < or = 19 years Acceptable: <110 mg/dL Borderline high: 110-129 mg/dL High: >or= 130 mg/dL Ages > or = 20 years Optimal: <100 mg/dL Near optimal: 100-129 mg/dL Borderline high: 130-159 mg/dL High: >160 mg/dL Calculated using the Tod LDL-C estimating equation. This equation was implemented on 2024. Prior to this date LDL-C was estimated using the Friedewald equation. Literature References: 1. Expert Panel on Integrated Guidelines for Cardiovascular Health and Risk Reduction in Children and Adolescents. Pediatrics 2011;128:S213 2. NCEP Expert Panel. Circulation 2004;110:227 3. Tod Monteiro et al. RAVEN Cardiol. 2019September 13;5(5):540-548. doi: 10.1001/[email or web address] Current Interpretive Data was last revised on 2024. Non-HDL Cholesterol 122 mg/dL [facility] Comment: Interpretive Data Ages < or = 19 years Acceptable: <120 mg/dL Borderline high: 120-144 mg/dL High: >145 mg/dL Ages > or = 20 years When triglycerides are >200 mg/dL, Non-HDL cholesterol is a secondary target of therapy with treatment goals that are 30 mg/dL greater than the LDL cholesterol target. Literature References: 1. Expert Panel on Integrated Guidelines for Cardiovascular Health and Risk Reduction in Children and Adolescents. Pediatrics 2011;128:S213 2. NCEP Expert Panel. Circulation 2004;110:227 Current Interpretive Data was last revised on 2018. Chol/HDL ratio 4 [facility] Blood 07/31/2024 12:0 7 PM CDT 07/31/2024 1:40 PM CDT us Janiya Arana MD LAB BLOOD ORDERABLES Final Re sult [facility] Department [place] [address] * Albumin Creatinine Ratio, Urine (01/17/2024 5:02 PM CDT) Albumin Ur 13.8 mg/L Comment: Interpretive Data No reference range established. Current interpretive data was last revised 2018. Creatinine Ur 177.7 mg/dL [facility] Comment: Interpretive Data No reference range established. Current interpretive data was last revised 2018. Albumin Creatinine Ratio, Ur 8 1 - 29 mg/g [facility] Urine 01/17/2024 5:02 PM CDT 01/17/2024 6:34 PM CDT Camelia Bolivar MD LAB URINE ORDERABLES Fin al Result [facility] Department [place] [address] * COLONOSCOPY (04/13/2022 8:41 AM HAND SLITTER) Anatomical Region Laterality Modality Other Narrative Procedure Note Jess Elizabeth MD - 04/13/2022 8:41 AM CST [facility] END[facility] Patient Name: Jovan Fiore Procedure Date: 04/13/2022 8:41 AM Date of : 1950 Admit Type: Outpatient Age: 72 Gender: Female Attending MD: Jess Elizabeth M.D. Room: [facility] ENDOSCOPY ROOM 4 Note Status: Finalized Procedure: Colonoscopy Indications: High risk colon cancer surveillance: Personalhistory of adenoma less than 10 mm in size Referring MD: Miguel Singh M.D. Providers: Jess Elizabeth M.D. Medicines: Monitored Anesthesia Care Complications: No immediate complications. Estimated Blood Loss: Estimated blood loss: none. Procedure: Pre-Anesthesia Assessment: - Immediately prior to administration ofmedications, the patient was re-assessed for adequacy to receive sedatives. - The risks and benefits of the procedure and the sedation options and risks were discussed with the patient. All questions were answered and informed consent was obtained. The benefits, risks and alternatives of theprocedure and sedation were discussed and informed consentwas obtained. All questions were answered. Please referto the signed informed consent document in the medical record. The scope was passed under direct vision.The Colonoscope was introduced through the anus and advanced to the terminal ileum. The colonoscopy was technically difficult and complex due to inadequate bowel prep. Successful completion of the procedurewas aided by lavage. The quality of the bowelpreparation was fair. The bowel preparation used was GoLYTELYvia split dose instruction. Bowel prep was administered using a split dose. Findings: The perianal and digital rectal examinations were normal. The colon (entire examined portion) appeared normal. Semi-liquid stool was found in the sigmoid colon and ascending colon, interfering with visualization. Lavage of the area was performed, resulting in incomplete clearance with fair visualization. The terminal ileum appeared normal. Internal hemorrhoids were found during retroflexion. The hemorrhoids were medium-sized. Impression: - Preparation of the colon was fair. - The entire examined colon is normal. - Stool in the sigmoid colon. - The examined portion of the ileum was normal. - Internal hemorrhoids. - No specimens collected. Recommendation: - Repeat colonoscopy in 6-12 months because thebowel preparation was inadequate. - please call [phone], 8 am -5 pm if any post procedural concerns/issues, after hours/weekends please call [phone] and ask for GI fellow oncall Attending Participation: I personally performed the entire procedure. Electronically signed by Jess Elizabeth MD Jess Elizabeth M.D. 04/13/2022 9:32:22 AM . Number of Addenda: 0 Note Initiated On: 04/13/2022 8:41 AM Recognized by the [employer] for promoting quality in endoscopy us Jess Elizabeth MD ENDOSCOPY PROCEDURES Final Res ult * Dexa Axial Skeleton Bone Density 1 or 2 Site (01/27/2021 9:47 AM CDT) Anatomical Region Laterality Modality Body N/A Digital Radiogra phy 01/27/2021 10:0 1 AM CDT Impressions 01/27/2021 3:44 PM CDT 1. The bone mineral density of the lumbar spine is mildly decreased. 2. The bone mineral density of the left femoral neck is normal. 3. The bone mineral density of the left total hip is normal. 4. Overall, the above findings are diagnostic of low bone mass (osteopenia) by WHO criteria. 5. Based on the FRAX fracture risk model, the 10-year probability for major osteoporotic fracture is 2.6% and that for hip fracture is 0.1%. This 10-year fracture risk estimate was calculated using the risk factors noted in the history above, along with the femoral neck bone density. FRAX is intended to help guide treatment decisions in men over age 50 and postmenopausal women with low bone mass (osteopenia). The National Osteoporosis Foundation (NOF) recommends that FDA-approved medical therapies be considered in postmenopausal women and men age 50 years and older with osteoporosis and those with low bone mass whose 10-year fracture probability by FRAX is >= 20% for major osteoporotic fracture or >= 3% for hip fracture. However, all treatment decisions require clinical judgment and consideration of individual patient factors, including patient preferences, comorbidities, previous drug use, risk factors not captured in the FRAX model (e.g., frailty, falls, vitamin D deficiency, increased bone turnover, interval significant decline in bone density) and possible under- or overestimation of fracture risk by FRAX. General comments regarding interpretation of bone density measurements: A) In children, premenopausal woman and males under age 50 not at increased risk for fractures only Z-scores, not T-scores are used to indicate risk. A Z-score above -2.0 is defined as within the expected range for age and Z-score at or less than -2.0 is below the expected range for age. A Z-score below the expected range for age in a patient with recent fractures and/or chronic corticosteroid treatment is consistent with a diagnosis of osteoporosis. B) In post menopausal women and males over 50, comparison of the measured bone mineral density with the average value in young normal subjects (the T-score) has been found to be useful in assessing fracture risk. Fracture risk approximately doubles for each 1.0 standard deviation (SD) in individual's hip or spine bone mineral density is below the average value of young normal subjects. The World Health Organization (WHO) has defined T-scores of -1.0 to -2.5 as diagnostic of low bone mass (OSTEOPENIA), and T-scores of -2.5 or lower to be diagnostic of OSTEOPOROSIS, based on the site of lowest bone density. Note that there will be a change in reporting format and reference databases as patients move from the younger population (group A) to the older population (group B) The National Osteoporosis Foundation (www.nof.org) recommends adequate intake of calcium and vitamin D and regular weight-bearing exercise in all patients. They recommend pharmacologic treatment in postmenopausal women and men age 50 and older presenting with any of the followin) Osteoporosis, after appropriate evaluation to exclude secondary causes. 2) A hip or vertebral (clinical or radiographic) fracture, regardless of the bone density. 3) Low bone mass (Osteopenia) and one or more of: other prior fractures, secondary causes associated with high risk of fracture (such as glucocorticoid use or total immobilization), or computed high risk of fracture (10-yr probability of hip fracture >= 3% or a 10-yr probability of any major osteoporosis-related fracture >= 20% based on the [place].-adapted WHO algorithm), available at http://www.shef.ac.uk/FRAX). Dictated by: Gayle Moyer M.D. The radiology attending physician has personally reviewed this study, and had reviewed and/or edited this written report and agrees with it. Electronically signed by: Kartik Kellogg MD, Ph.D Narrative 01/27/2021 3:44 PM CDT BONE DENSITOMETRY OF THE SPINE AND HIP DATE OF STUDY: 01/27/2021 HISTORY: 70-year-old postmenopausal woman with osteopenia. She is being treated with vitamin D. Evaluate bone mineral density. Additional risk factors for fracture: increased risk of secondary osteoporosis. FINDINGS (SPINE): The bone mineral density of L1-L4 was assessed by dual-energy x-ray absorptiometry. The average bone mineral density within this region is 0.817 gm/sq-cm. This is 0.7 standard deviations below the mean of the average bone mineral density for age- and gender-matched subjects (the Z-score). It is 2.1 standard deviations below the mean peak bone mineral density in young adults (the T-score). FINDINGS (FEMORAL NECK): The bone mineral density of the left femoral neck was assessed by dual-energy x-ray absorptiometry. The average bone mineral density within the femoral neck region is 0.919 gm/sq-cm. This is 1.2 standard deviations above the mean of the average bone mineral density for age- and gender-matched subjects (the Z-score). It is 0.6 standard deviations above the mean peak bone mineral density in young adults (the T-score). FINDINGS (TOTAL HIP): The bone mineral density of the left hip was assessed by dual-energy x-ray absorptiometry. The average bone mineral density within the total hip region is 1.014 gm/sq-cm. This is 1.0 standard deviations above the mean of the average bone mineral density for age- and gender-matched subjects (the Z-score). It is 0.6 standard deviations above the mean peak bone mineral density in young adults (the T-score). SUMMARY OF CURRENT RESULTS: Region BMD T-score Z-score AP Spine (L1-L4) 0.817 -2.1 -0.7 Femoral Neck (Left) 0.919 0.6 1.2 Total Hip (Left) 1.014 0.6 1.0 Procedure Note Kartik Paul MD PhD - 01/27/2021 BONE DENSITOMETRY OF THE SPINE AND HIP DATE OF STUDY: 01/27/2021 HISTORY: 70-year-old postmenopausal woman with osteopenia. She is being treated with vitamin D. Evaluate bone mineral density. Additional risk factors for fracture: increased risk of secondary osteoporosis. FINDINGS (SPINE): The bone mineral density of L1-L4 was assessed by dual-energy x-ray absorptiometry. The average bone mineral density within this region is 0.817 gm/sq-cm. This is 0.7 standard deviations below the mean of the average bone mineral density for age- and gender-matched subjects (the Z-score). It is 2.1 standard deviations below the mean peak bone mineral density in young adults (the T-score). FINDINGS (FEMORAL NECK): The bone mineral density of the left femoral neck was assessed by dual-energy x-ray absorptiometry. The average bone mineral density within the femoral neck region is 0.919 gm/sq-cm. This is 1.2 standard deviations above the mean of the average bone mineral density for age- and gender-matched subjects (the Z-score). It is 0.6 standard deviations above the mean peak bone mineral density in young adults (the T-score). FINDINGS (TOTAL HIP): The bone mineral density of the left hip was assessed by dual-energy x-ray absorptiometry. The average bone mineral density within the total hip region is 1.014 gm/sq-cm. This is 1.0 standard deviations above the mean of the average bone mineral density for age- and gender-matched subjects (the Z-score). It is 0.6 standard deviations above the mean peak bone mineral density in young adults (the T-score). SUMMARY OF CURRENT RESULTS: Region BMD T-score Z-score AP Spine (L1-L4) 0.817 -2.1 -0.7 Femoral Neck (Left) 0.919 0.6 1.2 Total Hip (Left) 1.014 0.6 1.0 IMPRESSION: 1. The bone mineral density of the lumbar spine is mildly decreased. 2. The bone mineral density of the left femoral neck is normal. 3. The bone mineral density of the left total hip is normal. 4. Overall, the above findings are diagnostic of low bone mass (osteopenia) by WHO criteria. 5. Based on the FRAX fracture risk model, the 10-year probability for major osteoporotic fracture is 2.6% and that for hip fracture is 0.1%. This 10-year fracture risk estimate was calculated using the risk factors noted in the history above, along with the femoral neck bone density. FRAX is intended to help guide treatment decisions in men over age 50 and postmenopausal women with low bone mass (osteopenia). The National Osteoporosis Foundation (NOF) recommends that FDA-approved medical therapies be considered in postmenopausal women and men age 50 years and older with osteoporosis and those with low bone mass whose 10-year fracture probability by FRAX is >= 20% for major osteoporotic fracture or >= 3% for hip fracture. However, all treatment decisions require clinical judgment and consideration of individual patient factors, including patient preferences, comorbidities, previous drug use, risk factors not captured in the FRAX model (e.g., frailty, falls, vitamin D deficiency, increased bone turnover, interval significant decline in bone density) and possible under- or overestimation of fracture risk by FRAX. General comments regarding interpretation of bone density measurements: A) In children, premenopausal woman and males under age 50 not at increased risk for fractures only Z-scores, not T-scores are used to indicate risk. A Z-score above -2.0 is defined as within the expected range for age and Z-score at or less than -2.0 is below the expected range for age. A Z-score below the expected range for age in a patient with recent fractures and/or chronic corticosteroid treatment is consistent with a diagnosis of osteoporosis. B) In post menopausal women and males over 50, comparison of the measured bone mineral density with the average value in young normal subjects (the T-score) has been found to be useful in assessing fracture risk. Fracture risk approximately doubles for each 1.0 standard deviation (SD) in individual's hip or spine bone mineral density is below the average value of young normal subjects. The World Health Organization (WHO) has defined T-scores of -1.0 to -2.5 as diagnostic of low bone mass (OSTEOPENIA), and T-scores of -2.5 or lower to be diagnostic of OSTEOPOROSIS, based on the site of lowest bone density. Note that there will be a change in reporting format and reference databases as patients move from the younger population (group A) to the older population (group B) The National Osteoporosis Foundation (www.nof.org) recommends adequate intake of calcium and vitamin D and regular weight-bearing exercise in all patients. They recommend pharmacologic treatment in postmenopausal women and men age 50 and older presenting with any of the followin) Osteoporosis, after appropriate evaluation to exclude secondary causes. 2) A hip or vertebral (clinical or radiographic) fracture, regardless of the bone density. 3) Low bone mass (Osteopenia) and one or more of: other prior fractures, secondary causes associated with high risk of fracture (such as glucocorticoid use or total immobilization), or computed high risk of fracture (10-yr probability of hip fracture >= 3% or a 10-yr probability of any major osteoporosis-related fracture >= 20% based on the [place].-adapted WHO algorithm), available at http://www.shef.ac.uk/FRAX). Dictated by: Gayle Moyer M.D. The radiology attending physician has personally reviewed this study, and had reviewed and/or edited this written report and agrees with it. Electronically signed by: Kartik Kellogg MD, Ph.D us Miguel Singh MD IMG DXA PROCEDURES Fi nal Result * Hepatitis C antibody (03/07/2018 2:47 PM CDT) Hep C Ab Nonreactive Nonreactive [facility] Comment: Interpretive Data Positive results should be confirmed by a molecular method. If positive, a second separately collected sample should be submitted for Hepatitis C Virus (HCV) RNA Detection and Quantitation by Real-Time Reverse Fender Finisher-PCR (RT-PCR). Current interpretive data was last revised on 2016. Blood specimen (specimen) 03/07/2018 2:47 PM CDT 03/07/2018 3:21 PM CDT Narrative [facility] - 03/08/2018 11:47 AM CDT us Toby Parra Jr., MD LAB MICRO BIOLOGY - GENERAL ORDERABLES Edited Result - Final [facility] Department [place] [address] from Last 3 Months or Most Recently Relevant to Health Maintenance Insurance MEDICARE [facility] Member Subscriber Plan / Payer (Ef fective 2018-Present) Name:Jovan Fiore Relation to Subscriber:Self Name:JOVAN FIORE Payer ID:[id number] (NAIC) Group ID:[id number] Type:[employer] Address: [address] MEDICARE MEDICARE [facility] FEDERAL FEDERAL MEDICARE MEDICARE Advance Directives For more information, please contact: [phone] * Full Code (Latest Code Status on File) Date Activated Date Inactivated Comments 04/13/2022 8:26 AM 04/13/2022 2:08 PM * Full Code Date Activated Date Inactivated Comments 04/24/2020 5:11 PM 04/27/2020 9:41 PM * Full Code Date Activated Date Inactivated Comments 03/20/2018 7:45 AM 03/20/2018 11:37 AM Care Teams Rail Car Unloader Relationship Specialty Start Date End Date Janiya Arana MD [address] [address] PCP - General 10/30/22 Teresa Solano OD Primary Eye Care Provider Optometry 08/18/20
--- OUTSIDE RECORDS SUMMARY | 2025-02-12 14:22 | XMS_ITS | Encounter Summary ---
Author Organization [facility] Healthcare Address [address] [place] [address] Care Team Providers Care Glass Cylinder Flanger Name Role Phone Teresa Solano OD Unavailable [phone] Janiya Arana MD Primary Care Provider [phone] Encounter Details Date Type Department Care Team (Late st Contact Info) Description 06/15/2023 Telephone [facility] Primary Care Medicine Clinic [address] [facility] [address] [place] [address] Janiya Arana MD [address] [facility] [address] [place] [address] Social History Tobacco Use Types Packs/Day Years Used Date Smoking Tobacco: Never Smokeless Tobacco: Never Alcohol Use Standard Drinks/Week Comments No 0 (1 standard drink = 0.6 oz pur e alcohol) AUDIT-C Answer Date Recorded Q1: How often do you have a drink containing alcohol? Never 01/05/2023 Q2: How many drinks containi ng alcohol do you have on a typical day when you are drinking? Patient does not drink Q3: How often do you have si x or more drinks on one occasion? Never 01/05/2023 PHQ-2 Answer Date Recorded PHQ-2 Total Score (If total score is 3 or more points, staff should administer the PHQ-9) 0 01/05/2023 Hunger Vital Sign Answer Date Recorded Within the past 12 months, y ou worried that your food would run out before you got the money to buy more. Never true 04/12/20 23 Within the past 12 months, t he food you bought just didn't last and you didn't have money to get more. 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
--- OUTSIDE RECORDS SUMMARY | 2025-02-12 14:22 | XMS_ITS | Encounter Summary ---
Author Organization [facility] Healthcare Address [address] [place] [address] Care Team Providers Care Software Controls Engineer Name Role Phone Teresa Solano OD Unavailable [phone] Janiya Arana MD Primary Care Provider [phone] Encounter Details Date Type Department Care Team (Late st Contact Info) Description 06/10/2023 Telephone [facility] Primary Care Medicine Clinic [address] [facility] [address] [place] [address] Janiya Arana MD [address] [facility] [address] [place] [address] Social History Tobacco Use Types [...] on file Legal Sex Female 12:20 AM DRAWING IN HAND Gender Identity Not on file Sexual Orientation [...] on filedocumented in this encounter Care Teams Software Controls Engineer Relationship Specialty Start Date End Date Janiya Arana MD [address] [address] PCP - General 10/30/22 Teresa Solano OD Primary Eye Care Provider Optometry 08/18/20 documented as of this encounter
--- OUTSIDE RECORDS SUMMARY | 2025-02-12 14:22 | XMS_ITS | Encounter Summary ---
Author Organization [facility] Healthcare Address [address] [place] [address] Care Team Providers Care Photogrammetric Compilation Specialist Name Role Phone Teresa Solano OD Unavailable [phone] Janiya Arana MD Primary Care Provider [phone] Encounter Details Date Type Department Care Team (Late st Contact Info) Description 06/22/2023 Telephone [facility] Primary Care Medicine Clinic [address] [facility] [address] [address] Janiya Arana MD [address] [facility] [address] [place] [address] Social History Tobacco Use Types [...] on file 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
--- OUTSIDE RECORDS SUMMARY | 2025-02-12 14:22 | XMS_ITS | Encounter Summary ---
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
== END 2025-02-12 14:05 | disposition home or self-care (01) ==
LOC: ANHLAB 14:06
PROVIDERS: Visit Provider Podiatrist Foot & Ankle Surgery
DX: B35.1 Tinea unguium (principal)
CPT/HCPCS: 36415

== ENCOUNTER 2025-02-14 16:05 | Outpatient (CLI) | payer BC, SELFPAY ==
--- OUTSIDE RECORDS SUMMARY | 2025-02-14 16:08 | XMS_ITS | Encounter Summary ---
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
--- OUTSIDE RECORDS SUMMARY | 2025-02-14 16:08 | XMS_ITS | Encounter Summary ---
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 Pt is at work today and [place] like to be contacted at [phone] documented in this encounter Plan of Treatment Scheduled Procedures [...] on filedocumented in this encounter Care Teams Wall Attendant Relationship Specialty Start Date End Date Janiya Arana MD [address] [facility] [address] [place] [address] PCP - General 10/30/22 Teresa Solano OD Primary Eye Care Provider Optometry 08/18/20 documented as of this encounter
--- OUTSIDE RECORDS SUMMARY | 2025-02-14 16:08 | XMS_ITS | Encounter Summary ---
Author Organization [facility] Healthcare Address [address] [place] [address] Care Team Providers Care Loan Originator Name Role Phone Teresa Solano OD Unavailable [phone] Janiya Arana MD Primary Care Provider [phone] Encounter Details Date Type Department Care Team (Late st Contact Info) Description 06/22/2023 Telephone [facility] Primary Care Medicine Clinic [address] 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
--- OUTSIDE RECORDS SUMMARY | 2025-02-14 16:08 | XMS_ITS | Encounter Summary ---
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
--- OUTSIDE RECORDS SUMMARY | 2025-02-14 16:08 | XMS_ITS | Encounter Summary ---
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
--- OUTSIDE RECORDS SUMMARY | 2025-02-14 16:08 | XMS_ITS | Encounter Summary ---
Author Organization [facility] Healthcare Address [address] [place] [address] Care Team Providers Care Rehabilitation Coordinator Name Role Phone Miguel Singh MD Primary Care Provide r Teresa Solano OD Unavailable [phone] Janiya Arana MD Primary Care Provider [phone] Reason for Visit * Reason Onset Date Comments Referral Review/Colon 11/10/2021 Encounter Details Date Type Department Care Team (Late st Contact Info) Description 11/10/2021 Telephone [facility] Specialty Services [address] [place] [address] Miscellaneous, Not In File Referral Review/Colon Social [...] on file 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
--- OUTSIDE RECORDS SUMMARY | 2025-02-14 16:08 | XMS_ITS | Clinical Summary ---
Author Organization [facility] Address [address] [place] [address] Care Team Providers Care Commercial Reporter Name Role Phone Teresa Solano OD Unavailable [phone] Janiya Arana MD Primary Care Provider [phone] Allergies Active Allergy Reactions Criticality Noted Date [...] FOR CRAMPS 360 tablet 02/09/20 25 Active hyoscyamine (LEVSIN) 0.125 mg tabletIndication s:Urinary Incontinence [...] to urinate. Had seen Urology back in [id number]. Denies dysuria, hematuria, pelvic pain or lesions. [...] over the counter sinus pill from the dollar store that she does not know the [...] 2-3 meals a day with assistance from x ray equipment mechanic. Depressed mood 12/31/2020 Overview (12/31/2020): -Discontinuing citalopram [...] annually Assessment & Plan (07/05/2024 1:30 PM SALES PROJECT ADMINISTRATOR): OCT RNFL today with stable inferior thinning [...] OU Assessment & Plan (06/30/2023 2:07 PM SALES PROJECT ADMINISTRATOR): Here for intraocular pressure (IOP) check 11 [...] OU Assessment & Plan (07/08/2022 4:04 PM SALES PROJECT ADMINISTRATOR): LTG OU Last HVF 12/2021 Last OCT [...] concerns Assessment & Plan (07/02/2021 1:16 PM SALES PROJECT ADMINISTRATOR): LTG both eyes s/p SLT OU Off [...] (provided). Discussed return precautions. Pt expressed understanding RTC Dom SATHYA OR JOSE Glaucoma clinic 5-6 weeks for IOP check [...] glaucoma. Assessment & Plan (06/17/2020 2:58 PM SALES PROJECT ADMINISTRATOR): Vs NTG right eye (OD). Sectorial pallor [...] 06/27/2019 Assessment & Plan (07/05/2024 1:26 PM SALES PROJECT ADMINISTRATOR): NVS, monitor, migs candidate Assessment & Plan (12/29/2023 1:33 PM CDT): NVS, monitor, migs candidate Assessment & Plan (06/30/2023 2:07 PM SALES PROJECT ADMINISTRATOR): NVS, monitor, migs candidate Assessment & Plan (01/01/2021 1:21 PM CDT): Not yet VS. Could consider phaco/migs in future Assessment & Plan (06/17/2020 2:55 PM SALES PROJECT ADMINISTRATOR): Defer cataract surgery until signs and symptoms indicate. Pt was educated on the diagnosis. Recommend daily UV protection. Assessment & Plan (06/27/2019 9:42 AM SALES PROJECT ADMINISTRATOR): Defer cataract surgery until signs and symptoms indicate. Pt was educated on the diagnosis. Recommend daily UV protection. Bilateral retinal lattice degeneration 0 Assessment & Plan (06/17/2020 2:55 PM SALES PROJECT ADMINISTRATOR): Patient was educated on the signs/sx retinal detachment, including flashes, floaters, and/or curtain over the vision. Recommend patient RTC immediately with the onset of any of these symptoms. Assessment & Plan (06/27/2019 9:43 AM SALES PROJECT ADMINISTRATOR): Pt ed. Signs/sx retinal detachment (RD) reviewed. Optic nerve cupping of both eyes 06/27/2019 Assessment & Plan (06/27/2019 9:43 AM SALES PROJECT ADMINISTRATOR): RTC for Glaucoma work-up: Hastings visual field (HVF), OCT, pach, gonio. No FHx Glaucoma. Health NRR both eyes (OU). Normal IOPs. Hypertensive retinopathy of both eyes, grade 1 0 06/27/2019 Assessment & Plan (06/27/2019 9:44 AM SALES PROJECT ADMINISTRATOR): Pt ed. Stressed strict BP control/med compliance. [...] J&J, Pfizer, Pfizer bivalent - Influenza (annually): 1090-4212 - Td/Tdap (q10 years): 2020 - PPSV23 [...] J&J, Pfizer, Pfizer bivalent - Influenza (annually): 4842-9123 - Td/Tdap (q10 years): 2023 - PPSV23 [...] J&J, Pfizer, Pfizer bivalent - Influenza (annually): 0664-9075 - Td/Tdap (q10 years): 2020 - PPSV23 [...] A1c Assessment & Plan (07/05/2024 1:30 PM SALES PROJECT ADMINISTRATOR): Recommend DFEx at next visit Assessment & [...] 06/09/2021 Assessment & Plan (04/27/2020 1:17 PM SALES PROJECT ADMINISTRATOR): Much improved. -Unclear etiology. She has had [...] 06/09/2021 Assessment & Plan (04/25/2020 10:43 AM SALES PROJECT ADMINISTRATOR): Based on fever x1 (39.5), tachycardia (102), and borderline WBC (10-11). -BCx, UA, CXR -Azithromycin. Low threshold for broad spectrum ABx. Decreased appetite 04/25/2020 Assessment & Plan (04/25/2020 10:45 AM SALES PROJECT ADMINISTRATOR): Likely 2/2 generalized malaise. According to son, has barely eaten/drank over the past few days. Creatinine wnl Hypertension associated with diabetes 04/25/2020 04/15/2023 Assessment & Plan (04/25/2020 10:47 AM SALES PROJECT ADMINISTRATOR): -Observe off meds (has been normotensive) Depression 04/25/2020 06/09/2021 Assessment & Plan (04/25/2020 10:47 AM SALES PROJECT ADMINISTRATOR): Restart home citalopram COVID-19 virus infection 04/24/2020 Assessment & Plan (04/27/2020 1:17 PM SALES PROJECT ADMINISTRATOR): Tested covid + 04/24/20. She has no [...] Encounters Date Type Department Care Team Description 02/14/2025 Telephone [facility] [address] [place] [address] Floor [address] [place] [phone] Allie Arriola, AMANDO 02/13/2025 Telephone [facility] [address] [place] [address] Floor [address] [place] [phone] Elbert Purvis 01/31/2025 Telephone [facility] [address] [place] [address] Floor [address] [place] [phone] Allie Arriola RN 01/23/2025 Telephone [facility] [address] [place] [address] [place] [phone] Marilin Carmona MD 01/23/2025 Documentation [facility] [address] [place] [address] [place] [phone] Marilin Carmona MD 01/22/[address] [address] Bria Rodriguez MD 01/21/2025 [facility] [address] [place] [address] [place] [address] Janiya Arana MD Follow-up 01/21/2025 Telephone [facility] [address] [place] [address] Floor [address] [place] [phone] Darron Robertson 01/17/2025 Telephone [facility] [address] [place] [phone] Bria Rodriguez MD 01/15/2025 2:30 PM CDT Office Visit [facility] Clinic [address] [place] [address] Health 3rd Floor [address] [place] [phone] Bria Rodriguez MD Increased urinary frequency (Primary Dx); Vaginal atrophy 01/15/2025 1:00 PM CDT Office Visit [facility] [address] [place] [address] [address] [place], [place] [phone] Marilin Carmona MD Type 2 diabetes mellitus without complication, without long-term current use of insulin (HCC) (Primary Dx); Allergic rhinitis, unspecified seasonality, unspecified trigger; Chronic left shoulder pain; Screening for malignant neoplasm of colon 01/03/2025 2:00 PM CDT Office Visit [facility] Medicine Ophthalmology [address] [place] [address] 1st [place] [phone] Low-tension glaucoma of both eyes, mild stage (Primary Dx) from Last 3 Months Immunizations Immunization Administration Dates Next Due COVID-19 mRNA (Med[employer]) 0.3 m L (30 mcg) vaccine (12 years and up) 04/12/2023 Influenza, Quadrivalent, Hig h Dose, Preservative Free, Intrr 04/12/2023 Influenza, Trivalent, Preser vative Free, Intramuscular 03/16/2011,04/11/2007,03/08/2006 Influenza, Unspecified 02/27/2020 [employer] (J&J) SARS-CoV-2 Vaccination 07/24/2020 Pneumococcal Conjugate PCV 13 11/04/2016 Pneumococcal Polysaccharide PPV23 03/07/2018 TD Preservative Free 02/10/2010 Td, adsorbed 01/01/2020 Tdap 07/25/2023 Surgical History Surgery Date Site/Laterality Comments AR COLONOSCOPY FLX DX W/SEBASTIAN J SPEC WHEN PFRMD Complete Colonoscopy - (Added by TW Conv) AR TOTAL ABDOMINAL HYSTERECT W/WO RMVL TUBE OVARY [...] on file 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 Gender Identity Not on file Sexual Orientation [...] 01/27/2021 Foot Exam 06/27/2024 06/27/2023 Covid-19 Vaccine (2024-2 6 season) 2025 04/12/2023, 02/09/2022, 05/04/2021, Additional history exists Influenza Vaccine (#1) 2025 , 02/09/2022, 02/27/2020, Additional history exists Albumin Creatinine Ratio, Urine 01/16/2025 01/17/2024, 04/12/2023, 02/27/2020 Hemoglobin A1C 07/15/2025 01/15/2025, 031 12/2024, 01/17/2024, Additional history exists Depression Screening 07/31/2025 07/31/2024, 01/06/20 23 Fall Risk Assessment 07/31/2025 07/31/2024, 04/13/20 22 Lipid Panel 07/31/2025 07/31/2024, 0807/2022, 01/01/2020, Additional history exists eGFR 07/31/2025 07/31/2024, 090 07/2023, 01/05/2023, Additional history exists Breast Cancer Screening-Mammogram [...] of insulin (HCC) COLONOSCOPY 04/13/2022 8:41 AM SALES PROJECT ADMINISTRATOR DEXA AXIAL SKELETON BONE DENSITY 1 OR [...] ur Yellow Yellow Clarity, ur Cloudy(A) Clear [facility] Specific gravity, ur 1.029 1.003 - 1.030 [facility] pH, urine 5.5 [facility] Comment: Interpretive Data U rine pH is affected by diet, medications, systemic acid-base disturbances, and renal tubular function. pH may affect urinary stone formation. For example, urine pH below 6.0 may help reduce the tendency for calcium phosphate stones and pH greater than 6.0 may reduce the tendency for uric acid stone formation. Source: [facility] Current Interpretive Data was last revised on 2017 Protein, ur ql Negative Negative [facility] Glucose, ur ql 4+(A) Negative [facility] Ketones, ur Negative Negative [facility] Bilirubin, ur Negative Negative [facility] Blood, ur Negative Negative [facility] Urobilinogen, ur <2.0 <2.0 mg/dL [facility] Nitrite, ur Positive(A) Negative [facility] Leukocyte esterase, ur Negative Negative [facility] UA reflex comment Reflex to microscopic UA will be performed. [facility] Urine, clean voided 01/15/2025 4:32 PM CDT 01/15/2025 4:32 PM CDT Bria Rodriguez MD LAB MICROBIOLOGY - GENE [facility] ORDERABLES Final Result [facility] [place] [address] * (ABNORMAL) Urinalysis, microscopic only (01/15/2025 4:32 PM CDT) WBC, ur 0-5 0 - 5 /HPF RBC, ur 0-2 0 - 2 /HPF [facility] Epithelial cells, squamous, ur 1-5 0 - 5 /HPF [facility] Bacteria, ur 4+(A) [facility] Mucous, ur Present(A) [facility] Culture Reflex Comment Reflex conditions for urine culture (WBC >10) not met. [facility] Urine, clean voided 01/15/2025 4:32 PM CDT 01/15/2025 4:32 PM CDT Bria Rodriguez MD LAB URINE ORDERABLES Fi nal Result Performing Organization Address [facility]/ZIP Co de Phone Number [facility] [place] [address] * (ABNORMAL) Urine culture Urine (01/15/2025 4:32 PM CDT) Report Final Report: Greater than or equal to 100,000 colonies/mL of Klebsiella pneumoniae Plus growth of clinically insignificant bacterial isai. (.) Organism KLEBSIELLA PNEUMONIAE [facility] Organism PLUS GROWTH OF CLINICALLY INSIGNIFICANT ISAI. [facility] Urine 01/15/2025 4:32 PM CDT 01/17/2025 3:33 PM CDT Narrative [facility] - 01/19/2025 4:19 PM CDT Testing performed by [facility] ([phone]) Organism Antibiotic Method Susceptibility Klebsiella pneumoniae Ampicillin [...] RAL ORDERABLES Final Result Performing Organization Address City/[facility]/ZIP Co de Phone Number [facility] [place] [address] * (ABNORMAL) POCT urinalysis (Clinitek) (01/15/2025 3:51 PM CDT) Color, ur, POC Dark yellow Clarity, UA, POC Cloudy(A) Clear [facility] Glucose, ur, POC 3+(A) Negative [facility] Bilirubin, ur, POC Negative Negative [facility] Ketones, ur, POC Negative Negative [facility] Specific gravity, ur, POC 1.020 1.010 - 1.025 [facility] Blood, ur, POC Trace(A) Negative [facility] pH, ur, POC 5.0 [facility] Comment: Interpretive Data Urine pH is affected by diet, medications, systemic acid-base disturbances, and renal tubular function. pH may affect urinary stone formation. For example, urine pH below 6.0 may help reduce the tendency for calcium phosphate stones and pH greater than 6.0 may reduce the tendency for uric acid stone formation. Source: [facility] [employer]. Last Revised Date: 05-26-2017 Protein, ur, POC Negative Negative [facility] Urobilinogen, ur, POC 0.2 mg/dL mg/dL [facility] Nitrites, ur, POC Positive(A) Negative [facility] Leukocyte esterase, ur, POC Negative Negative [facility] Urine 01/15/2025 3:51 PM CDT 01/15/2025 3:51 PM CDT us Bria Rodriguez MD LAB POCT ORDERABLES - D HEIDI Final Result [facility] [place] [address] * (ABNORMAL) POCT hemoglobin A1c (01/15/2025 1:33 PM CDT) Hgb A1C, POC 6.6(H) 4.0 - 5.6 % Est Average Gluc POC 143 mg/dL [facility] Comment: The ADA recommends reporting an estimated Average Glucose (eAG) with all Hemoglobin A1c results using the equation derived from a study of 507 normal and diabetic adults. Minority populations were underrepresented and children were not included. (Diabetes Care 31:8872-5248, 2008). The eAG is not equivalent to a fasting glucose. Blood 01/15/2025 1:33 PM CDT 01/15/2025 1:33 PM CDT us Marilin Carmona MD POINT OF CARE TEST ORDERA BLES Final Result [facility] [place] [address] * Hastings Visual Field - OU - [...] OU Stable superior arcuates Roxane Gupta MD [facility] VISUAL FIEL D Final Result * Screening [...] compared to prior imaging studies performed at [facility] on 04/03/2019, 06/02/2020 and 09/21/2022. The breasts [...] compared to prior imaging studies performed at [facility] on 04/03/2019, 06/02/2020 and 09/21/2022. The breasts [...] ORDERABLES Final Re sult [facility] [place] [address] * Lipid panel (07/31/2024 12:07 PM CDT) [...] revised on 2018. Triglycerides 122 <=149 mg/dL [facility] Comment: Interpretive Data Ages < or [...] revised on 2018. HDL 44 >=40 mg/dL [facility] Comment: Interpretive Data Ages < or = [...] on 2018. LDL, calculated 100 <=129 mg/dL [facility] Comment: Interpretive Data Ages < or [...] 3. Tod Monteiro et al. RAVEN Cardiol. 2020 September 13;5(5):540-548. doi: [email or web address] Current Interpretive Data was last revised on 2024. Non-HDL Cholesterol 122 mg/dL [facility] Comment: Interpretive Data Ages < or = [...] last revised on 2018. Chol/HDL ratio 4 [facility] Blood 07/31/2024 12:0 7 PM CDT 07/31/2024 1:40 PM CDT us Janiya Arana MD LAB BLOOD ORDERABLES Final Re sult [facility] [place] [address] * Albumin Creatinine Ratio, Urine (01/17/2024 5:02 PM CDT) Albumin Ur 13.8 mg/L Comment: Interpretive Data No reference range established. Current interpretive data was last revised 2018. Creatinine Ur 177.7 mg/dL [facility] Comment: Interpretive Data No reference range established. Current interpretive data was last revised 2018. Albumin Creatinine Ratio, Ur 8 1 - 29 mg/g [facility] Urine 01/17/2024 5:02 PM CDT 01/17/2024 6:34 PM CDT us Camelia Bolivar MD LAB URINE ORDERABLES Fin al Result [facility] [place] [address] * COLONOSCOPY (04/13/2022 8:41 AM SALES PROJECT ADMINISTRATOR) Anatomical Region Laterality Modality Other Narrative Procedure Note Jess Elizabeth MD - 04/13/2022 8:41 AM CST [facility] Patient Name: Jovan Fiore Procedure Date: 04/13/2022 8:41 AM Date of : 1950 Admit Type: Outpatient Age: 72 Gender: Female Attending MD: Jess Elizabeth M.D. Room: [facility] ENDOSCOPY ROOM 4 Note Status: Finalized Procedure: [...] thebowel preparation was inadequate. - please call [phone], 8 am -5 pm if any post procedural concerns/issues, after hours/weekends please call [phone] and ask for GI fellow oncall Attending Participation: I personally performed the entire procedure. Electronically signed by Jess Elizabeth MD Jess Elizabeth M.D. 04/13/2022 9:32:22 AM . Number of Addenda: 0 Note Initiated On: 04/13/2022 8:41 AM Recognized by the [employer] for promoting quality [...] algorithm), available at http://www.shef.ac.uk/FRAX). Dictated by: Gayle A Comfort, M.D. The radiology attending physician has personally reviewed this study, and had reviewed and/or edited this written report and agrees with it. Electronically signed by: Kartik Kellogg MD, Ph.D us Miguel Singh MD IMG DXA PROCEDURES Fi nal Result * Hepatitis C antibody (03/07/2018 2:47 PM CDT) Hep C Ab Nonreactive Nonreactive [facility] Comment: Interpretive Data Positive results should be confirmed by a molecular method. If positive, a second separately collected sample should be submitted for Hepatitis C Virus (HCV) RNA Detection and Quantitation by Real-Time Reverse Research Phlebotomist-PCR (RT-PCR). Current interpretive data was last revised on 2016. Blood specimen (specimen) 03/07/2018 2:47 PM CDT 03/07/2018 3:[address] [facility] - 03/08/2018 11:47 AM CDT us Toby Parra Jr., MD LAB MICRO BIOLOGY - GENERAL ORDERABLES Edited Result - Final [facility] [place] [address] from Last 3 Months or Most Recently Relevant to Health Maintenance Insurance MEDICARE [facility] Member Subscriber Plan / Payer (Ef fective 2018-Present) Name:Jovan Fiore Relation to Subscriber:Self Name:JOVAN FIORE Payer ID:[id number] (NAIC) Group ID:[id number] Type:MYFLY Address: [address] MEDICARE MEDICARE [facility] FEDERAL FEDERAL MEDICARE MEDICARE Advance Directives For more information, please contact: [phone] * Full Code (Latest Code Status on File) Date Activated Date Inactivated Comments 04/13/2022 8:26 AM 04/13/2022 2:08 PM * Full Code Date Activated Date Inactivated Comments 04/24/2020 5:11 PM 04/27/2020 9:41 PM * Full Code Date Activated Date Inactivated Comments 03/20/2018 7:45 AM 03/20/2018 11:37 AM Care Teams Commercial Reporter Relationship Specialty Start Date End Date Janiya Arana MD [address] [address] PCP - General 10/30/22 Teresa Solano OD Primary Eye Care Provider Optometry 08/18/20
--- OUTSIDE RECORDS SUMMARY | 2025-02-14 16:08 | XMS_ITS | Encounter Summary ---
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 Pt was scheduled in resident clinic in error, and desires pessary for prolapse management. Appt made on 03/11 to work around pt's work schedule. documented in this encounter Plan of Treatment [...] Management Worsening( 9:21 AM CDT) Kasey Laughlin, AMANDO Note: Problem: Hypertension Goals: 1. Meet age [...] on filedocumented in this encounter Care Teams Recycling Worker Relationship Specialty Start Date End Date Janiya Arana MD [address] [address] PCP - General 10/30/22 Teresa Solano, OD Primary Eye Care Provider Optometry 08/18/20 documented as of this encounter
[2025-02-14 16:34] LABS: Alanine Aminotransferase 24 U/L (6-35); Aspartate Amino Transferase 53 U/L (14-36)
== END 2025-02-14 16:06 | disposition home or self-care (01) ==
LOC: ANHLAB 16:06
PROVIDERS: Visit Provider Podiatrist Foot & Ankle Surgery
DX: B35.1 Tinea unguium (principal)
CPT/HCPCS: 36415; 84450; 84460

== ENCOUNTER 2025-04-01 08:08 | Outpatient (CLI) | payer BC, SELFPAY ==
--- NOTE | ~2025-04-01 | US_ITS ---
EXAMINATION: US art doppler neela NAVARRO DATE: 04/01/2025 09:11 INDICATION: Bilateral lower limb peripheral arterial occlusive disease. TECHNIQUE: Segmental pressures and plethysmographic and Doppler waveforms of the brachial and lower extremity arteries were obtained. COMPARISON: None. FINDINGS: Right and left brachial artery pressures of 149 mm Hg and 155 mm Hg, respectively, are concordant (normal difference <= 30 mmHg). The right ankle-brachial index (MARICHUY) is 1.13 (normal >= 0.9-1). The right great toe-brachial index (TBI) is 0.68 (normal >= 0.6-0.8). The right lower extremity segmental pressure gradients are unable to be obtained due to inability to occlude the vessels at the right above the knee popliteal artery and the right dorsalis pedis artery (normal gradients <= 20-30 mmHg between adjacent levels on the same leg or the same levels on the two legs). Arterial waveforms demonstrate brisk systolic upstrokes throughout the arteries of the right lower limb with monophasic waveform at the right common femoral artery and biphasic waveforms in the more distal arteries. The left MARICHUY is 1.12. The left TBI is 0.51. The left lower extremity segmental pressure gradients are increased between the left dorsalis pedis artery and both the left [id number] popliteal artery and left posterior tibial artery. Arterial waveforms and biphasic at the left common femoral and popliteal arteries and monophasic at the left femoral, posterior tibial and dorsalis pedis arteries, all with brisk systolic upstrokes. IMPRESSION: 1. No significant arterial occlusive disease to the right lower limb with normal right MARICHUY and TBI. 2. Mild arterial occlusive disease to left lower limb with normal left MARICHUY and mildly decreased left TBI. Reviewed, dictated and finalized at location A. [facility] IMPRESSION: 1. No significant arterial occlusive disease to the right lower limb with livia l right MARICHUY and TBI. 2. Mild arterial occlusive disease to left lower limb with normal left MARICHUY and mildly decreased left TBI.
== END 2025-04-01 08:09 | disposition home or self-care (01) ==
PROVIDERS: Visit Provider Podiatrist Foot & Ankle Surgery
DX: I73.9 Peripheral vascular disease, unspecified (principal)
CPT/HCPCS: 93923